=== PATIENT | female | born 1990 | race Caucasian/White ===

== ENCOUNTER 2016-12-29 22:46 | Emergency (ER) | payer OTHER ==
[2016-12-29] MEDS ORDERED: KETOROLAC 60 MG/2 ML VIAL IM STA (23:16)
[2016-12-29] MEDS ORDERED: HYDROmorphone 1 MG/ML SYRINGE IM STA (23:16)
[2016-12-29] MEDS ORDERED: KETOROLAC 60 MG/2 ML VIAL ONE (23:19)
[2016-12-29] MEDS ORDERED: HYDROmorphone 1 MG/ML SYRINGE ONE (23:19)
[2016-12-30] MEDS ORDERED: HYDROcod/ACET 5/325 Prepack 6 PO ONE ×2 (01:05→01:16)
== END 2016-12-30 01:27 | disposition home or self-care (01) ==
DX: R10.31 Right lower quadrant pain (principal); K21.9 Gastro-esophageal reflux disease without esophagitis; F17.200 Nicotine dependence, unspecified, uncomplicated
CPT/HCPCS: 36415; 74177; 76830; 76856; 80053; 81001; 81025; 83690; 85025; 87210; 87491; 87591; 93976; 96361; 96372; 96374; 96375; 96376; 99283; 99284; J1170; Q9967

== ENCOUNTER 2016-12-30 21:02 | Emergency (ER) | payer OTHER ==
[2016-12-30] MEDS ORDERED: ONDANSETRON 4 MG/2 ML VIAL IVP STA (21:26)
[2016-12-30] MEDS ORDERED: HYDROmorphone 1 MG/ML SYRINGE IVP STA ×2 (21:26→23:00)
[2016-12-30] MEDS ORDERED: SODIUM CHLORIDE 0.9% 1,000 ML IV ONE (21:28)
[2016-12-30] MEDS ORDERED: HYDROmorphone 1 MG/ML SYRINGE ONE ×2 (21:51→23:03)
[2016-12-30] MEDS ORDERED: ONDANSETRON 4 MG/2 ML VIAL ONE (21:51)
[2016-12-30] MEDS ORDERED: IOPAMIDOL-300 100 ML VIAL IVP ONE (22:05)
[2016-12-30] MEDS ORDERED: oxyCODONE/ACET 5/325 Prepack 4 PO STA (23:00)
[2016-12-30] MEDS ORDERED: KETOROLAC 60 MG/2 ML VIAL IVP STA (23:00)
[2016-12-30] MEDS ORDERED: KETOROLAC 30 MG/ML VIAL ONE (23:03)
[2016-12-30] MEDS ORDERED: oxyCODONE/ACET 5/325 Prepack 4 PO ONE (23:04)
[2016-12-30] MEDS ORDERED: ONDANSETRON ODT 4 MG Prepack 2 TL ONE (23:04)
[2016-12-30] MEDS: ONDANSETRON ODT 4 MG Prepack 2 TL PRN ×2 (23:15→23:16)
== END 2016-12-30 23:35 | disposition home or self-care (01) ==
DX: R10.9 Unspecified abdominal pain (principal); K21.9 Gastro-esophageal reflux disease without esophagitis; F17.200 Nicotine dependence, unspecified, uncomplicated

== ENCOUNTER 2017-02-16 20:39 | Emergency (ER) | payer OTHER ==
[2017-02-16] MEDS ORDERED: ONDANSETRON ODT 4 MG TABLET TL STA (21:37)
[2017-02-16] MEDS ORDERED: KETOROLAC 60 MG/2 ML VIAL IM STA (21:37)
[2017-02-16] MEDS ORDERED: ONDANSETRON ODT 4 MG TABLET ONE (21:43)
[2017-02-16] MEDS ORDERED: KETOROLAC 60 MG/2 ML VIAL ONE (21:43)
== END 2017-02-16 22:40 | disposition home or self-care (01) ==
DX: R10.32 Left lower quadrant pain (principal); R11.0 Nausea; K21.9 Gastro-esophageal reflux disease without esophagitis; F17.200 Nicotine dependence, unspecified, uncomplicated
CPT/HCPCS: 36415; 80053; 81003; 81025; 83690; 85025; 96372; 99283; Q0162

== ENCOUNTER 2017-05-16 09:36 | Emergency (ER) | payer OTHER, MEDICAID ==
[2017-05-16 10:05] LABS: BILIRUBIN,URINE NEGATIVE (NEGATIVE)
[2017-05-16 10:08] LABS: UA w/ MICROSCOPIC CHARGE YES
[2017-05-16 10:09] LABS: HCG UR QUAL NEGATIVE
[2017-05-16 10:23] LABS: WBC,URINE >25 /HPF (0-5)
[2017-05-16 10:24] LABS: UR CULTURE IF IND NOT INDICATED
--- NOTE | 2017-05-16 10:38 | ED Physician Documentation ---
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 She has not had fever vomiting or back pain. 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 - Past Surgical History Past Surgical History: Yes - Present Medications Home Medications: Ambulatory Orders Medication Instructions Recorded Confirmed Hydrocodone/Acetaminophen [[place] 1 each PO Q6H PRN #15 tablet 12/30/16 5-325 Tablet] Naproxen [Naprosyn] 500 mg PO BID PRN #15 tablet 12/30/16 Ondansetron HCl [Zofran] 4 mg PO Q6H PRN #20 tablet 12/30/16 Oxycodone HCl/Acetaminophen 1 each PO Q6H PRN #20 tablet 12/30/16 [Percocet 5-325 mg Tablet] Ondansetron Odt [Zofran] 4 mg TL Q6H PRN #10 tablet 02/16/17 Sulfamethoxazole/Trimethoprim 1 each PO BID #10 tablet 05/16/17 [Sulfamethoxazole-Tmp Ds Tablet] - Allergies Allergies/Adverse Reactions: Allergies Allergy/AdvReac Type Severity Reaction Status Date / Time venom-honey bee AdvReac Unknown Respiratory Verified 05/16/17 09:49 acetaminophen [From Vicodin] AdvReac Itching Verified 05/16/17 09:49 hydrocodone bitartrate * AdvReac Itching Verified 05/16/17 09:49 [From Vicodin] - Social History Does the pt smoke?: Yes Smoking Status: Current every day smoker Does the pt drink ETOH?: No Does the pt have substance abuse?: No - Immunizations Immunizations are current?: Yes - POLST Patient has POLST: No PD ED PE NORMAL - Vitals Vital signs reviewed: Yes (normal ) - General General: Alert and oriented X 3, No acute distress, Well developed/nourished - HEENT HEENT: Atraumatic, PERRL, EOMI - Respiratory Respiratory: No respiratory distress - Back Back: No CVA TTP, No spinal TTP - Derm Derm: Normal color, No rash - Extremities Extremities: No deformity, No edema - Neuro Neuro: No motor deficit, No sensory deficit - Psych Psych: Normal mood, Normal affect Results - Vitals Vitals: Vital Signs - 24 hr 05/16/17 09:38 Temperature 36.5 C Heart Rate 90 Respiratory 18 Rate Blood Pressure 124/69 O2 Saturation 98 Oxygen O2 Source Room air - Labs Labs: Laboratory Tests 05/16/17 05/16/17 09:44 09:44 Urine Color YELLOW Urine Clarity HAZY Urine pH 6.0 Ur Specific [place] 1.025 1.025 Urine Protein NEGATIVE Urine Glucose (UA) NEGATIVE Urine Ketones NEGATIVE Urine Occult Blood SMALL H Urine Nitrite NEGATIVE Urine Bilirubin NEGATIVE Urine Urobilinogen 0.2 (NORMAL) Ur Leukocyte Esterase TRACE H Urine RBC 6-10 H Urine WBC >25 H Ur Squamous Epith Cells MOD Squamous H Urine Bacteria Few Urine Yeast PRESENT Ur Microscopic Review INDICATED Urine Culture Comments NOT INDICATED Urine HCG, Qual NEGATIVE PD MEDICAL DECISION MAKING - ED course Complexity details: considered differential, d/w patient ED course: 26-year-old female with urinary symptoms greater than 25 white blood cells per high-powered field on her urine that does appear contaminated there will be no culture for this. Departure - Departure Disposition: 01 Home, Self Care Clinical Impression: Urinary tract infection Qualifiers: Urinary tract infection type: acute cystitis Hematuria presence: without hematuria Qualified Code(s): N30.00 - Acute cystitis without hematuria Condition: Stable Instructions: ED UTI Cystitis Female Follow-Up: [facility] [Provider Group] Prescriptions: Sulfamethoxazole/Trimethoprim [Sulfamethoxazole-Tmp Ds Tablet] 1 each PO BID # 10 tablet
[2017-05-16 10:43] VITALS: BP 122/74
== END 2017-05-16 10:42 | disposition home or self-care (01) ==
LOC: ED 09:36
DX: N30.00 Acute cystitis without hematuria (principal); J45.909 Unspecified asthma, uncomplicated; K21.9 Gastro-esophageal reflux disease without esophagitis; F17.200 Nicotine dependence, unspecified, uncomplicated
CPT/HCPCS: 81001; 81003; 81025; 87086; 99283

== ENCOUNTER 2017-05-18 20:19 | Emergency (ER) | payer MEDICAID ==
[2017-05-18] MEDS ORDERED: diphenhydrAMINE INJ 50 MG/ML VIAL IVP STA (21:06)
[2017-05-18] MEDS ORDERED: KETOROLAC 30 MG/ML VIAL IVP STA (21:06)
[2017-05-18] MEDS ORDERED: PROCHLORPERAZINE 10 MG/2 ML VIAL IVP STA (21:06)
[2017-05-18] MEDS ORDERED: SODIUM CHLORIDE 0.9% 1,000 ML IV ONE (21:06)
[2017-05-18] MEDS ORDERED: diphenhydrAMINE INJ 50 MG/ML VIAL ONE (22:11)
[2017-05-18] MEDS ORDERED: PROCHLORPERAZINE 10 MG/2 ML VIAL ONE (22:11)
[2017-05-18] MEDS ORDERED: KETOROLAC 30 MG/ML VIAL ONE (22:11)
--- NOTE | 2017-05-18 22:48 | ED Physician Documentation ---
PD HPI HEADACHE - Stated complaint Stated Complaint: HEADACHE - Chief complaint Chief Complaint: Neuro - History obtained from History obtained from: Patient - History of Present Illness Timing - onset: How many hours ago (12) Timing - details: Gradual onset, Still present Worst headache ever?: Worst headache ever? (no) Location: Global Associated symptoms: Vomiting (x2). No: Fever Worsened by: Light, Noise, Moving Contributing factors: No: Trauma Similar symptoms before: Diagnosis (History of migraine headaches, but rarely this bad.) Recently seen: Emergency Dept (She was seen in the emergency department here 2 days ago and diagnosed with urinary tract infection, for which she was prescribed trimethoprim sulfamethoxazole.) - Additional information Additional information: The patient is a 26-year-old female who presents with headache that started this morning and has persisted throughout the day. She is taken ibuprofen without relief. She reports vomiting 2. She denies fever, abdominal pain, or visual disturbance. She has a history of similar headaches in the past, but rarely this bad. 2 days ago she was diagnosed with urinary tract infection, and has been taking trimethoprim sulfamethoxazole. She currently denies dysuria. Review of Systems Constitutional: denies: Fever Eyes: denies: Decreased vision Ears: denies: Tinnitus/ringing Nose: denies: Congestion Throat: denies: Sore throat Cardiac: denies: Chest pain / pressure Respiratory: denies: Dyspnea, Cough GI: reports: Nausea, Vomiting (2). denies: Abdominal Pain : denies: Dysuria Skin: denies: Rash Musculoskeletal: denies: Neck pain, Back pain Neurologic: reports: Headache. 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 - Past Surgical History Past Surgical History: Yes - Present Medications Home Medications: Ambulatory Orders Medication Instructions Recorded Confirmed Sulfamethoxazole/Trimethoprim 1 each PO BID #10 tablet 05/16/17 05/18/17 [Sulfamethoxazole-Tmp Ds Tablet] - Allergies Allergies/Adverse Reactions: Allergies Allergy/AdvReac Type Severity Reaction Status Date / Time venom-honey bee AdvReac Unknown Respiratory Verified 05/16/17 09:49 acetaminophen [From Vicodin] AdvReac Itching Verified 05/16/17 09:49 hydrocodone bitartrate * AdvReac Itching Verified 05/16/17 09:49 [From Vicodin] - Social History Does the pt smoke?: Yes Smoking Status: Current every day smoker Does the pt drink ETOH?: No Does the pt have substance abuse?: No - Immunizations Immunizations are current?: Yes - POLST Patient has POLST: No PD ED PE NORMAL - Vitals Vital signs reviewed: Yes (normal) - General General: Alert and oriented X 3, Well developed/nourished - HEENT HEENT: Atraumatic, PERRL, EOMI, Ears normal, Pharynx benign, Other (Fundi with sharp disc margins, without papilledema.) - Neck Neck: Supple, no meningeal sign, No adenopathy - Cardiac Cardiac: RRR, No murmur - Respiratory Respiratory: No respiratory distress, Clear bilaterally - Abdomen Abdomen: Soft, Non tender - Back Back: No CVA TTP - Derm Derm: No rash - Extremities Extremities: No edema, No calf tenderness / cord - Neuro Neuro: Alert and oriented X 3, No motor deficit, No sensory deficit Results - Vitals Vitals: Vital Signs - 24 hr 05/18/17 23:02 Temperature 36.8 C Heart Rate 80 Respiratory 18 Rate Blood Pressure 102/68 O2 Saturation 99 Oxygen O2 Source Room air PD MEDICAL DECISION MAKING - ED course Complexity details: reviewed old records, re-evaluated patient, considered differential, d/w patient, d/w family ED course: The patient's presentation is significant for nonspecific headache. Her presentation does not suggest ICH, temporal arteritis, meningitis, or psuedotumor cerebri. Treatment in the Emergency Dept. included administration of NS 1 liter IV, Compazine 10 mg IV, Benadryl 25 mg IV, and Toradol 30 mg IV. Her symptoms completely resolved with the above treatment. I discussed with her and her symptomatic treatment, oupatient follow-up, as well as potentially worrisome signs or symtoms that should prompt reevaluation in the emergency department. Departure - Departure Disposition: 01 Home, Self Care Clinical Impression: Headache Instructions: ED Cephalgia Unspecified Comments: 1. Drink plenty of fluids. 2. You can use Tylenol or ibuprofen if needed for recurrent headache. 3. Follow up with primary physician within 2 weeks. Call to schedule an appointment. 4. Return to the emergency department if you develop increasing headache, persistent vomiting, or otherwise worsening symptoms. Discharge Date/Time: 05/18/17 23:02
[2017-05-18 23:03] VITALS: BP 102/68
== END 2017-05-18 23:02 | disposition home or self-care (01) ==
LOC: ED 20:19
DX: R51 Headache (principal); J45.909 Unspecified asthma, uncomplicated; K21.9 Gastro-esophageal reflux disease without esophagitis; F17.200 Nicotine dependence, unspecified, uncomplicated
CPT/HCPCS: 96374; 96375; 99283; 99284

== ENCOUNTER 2017-09-18 08:00 | Outpatient (CLI) | payer OTHER, MEDICAID ==
[2017-09-18 18:47] LABS: BASOPHILS % (AUTO) 0.5 %; EOSINOPHILS # (AUTO) 0.3 10^3/uL (0.0-0.7); HCT - HEMATOCRIT 39.6 % (37.0-47.0); HGB - HEMOGLOBIN 13.4 g/dL (12.0-16.0); LYMPHOCYTES # (AUTO) 2.3 10^3/uL (1.5-3.5); LYMPHOCYTES % (AUTO) 24.1 %; MEAN CORPUSCULAR HEMOGLOBIN 29.4 pg (27.0-31.0); MEAN CORPUSCULAR HGB CONC 33.9 g/dL (32.0-36.0); MEAN CORPUSCULAR VOLUME 86.9 fL (81.0-99.0); MEAN PLATELET VOLUME 8.9 fL (7.9-10.8); MONOCYTES # (AUTO) 0.8 10^3/uL (0.0-1.0); MONOCYTES % (AUTO) 8.1 %; NEUTROPHILS # (AUTO) 6.1 10^3/uL (1.5-6.6); NEUTROPHILS % (AUTO) 64.3 %; RED BLOOD COUNT 4.55 10^6/uL (4.20-5.40); RED CELL DISTRIBUTION WIDTH 13.1 % (12.0-15.0); UNCORRECTED WHITE BLOOD COUNT 9.5 x10^3/uL; WHITE BLOOD COUNT 9.5 x10^3/uL (4.8-10.8)
[2017-09-18 19:02] LABS: ALBUMIN/GLOBULIN RATIO 1.2 (1.0-2.2); BILIRUBIN,TOTAL 0.3 mg/dL (0.2-1.0); BUN - BLOOD UREA NITROGEN 9 mg/dL (6-20); CALCIUM 9.1 mg/dL (8.5-10.3); CARBON DIOXIDE - CO2 22 mmol/L (21-32); CHLORIDE 104 mmol/L (101-111); CHOL/HDL RATIO 4.6 (<4.4); CHOLESTEROL 146 mg/dL; CREATININE 0.6 mg/dL (0.4-1.0); GFR - MDRD 122 (>89); GLUCOSE 86 mg/dL (70-100); HDL CHOLESTEROL 32 mg/dL; POTASSIUM 3.9 mmol/L (3.5-5.0); SODIUM 136 mmol/L (135-145); TOTAL PROTEIN 7.1 g/dL (6.7-8.2); TRIGLYCERIDES 252 mg/dL; VLDL CHOLESTEROL 50 mg/dL
== END 2017-09-18 08:01 | disposition home or self-care (01) ==
LOC: LAB.N 08:00
PROVIDERS: ATTEND Nurse Practitioner Gerontology
DX: Z13.9 Encounter for screening, unspecified (principal); N91.2 Amenorrhea, unspecified
CPT/HCPCS: 36415; 80050; 80061; 84702

== ENCOUNTER 2017-09-22 09:44 | Outpatient (CLI) | payer MEDICAID, OTHER | END 2017-09-22 09:45 | disposition home or self-care (01) | LOC: LAB.N 09:44 | PROVIDERS: ATTEND Nurse Practitioner Gerontology | DX: N91.2 Amenorrhea, unspecified (principal) | CPT/HCPCS: 36415; 84703 ==

== ENCOUNTER 2018-02-24 08:00 | Outpatient (CLI) | payer MEDICAID | END 2018-02-24 08:01 | LOC: LAB.R 08:00 | PROVIDERS: ATTEND Obstetrics & Gynecology | DX: E04.9 Nontoxic goiter, unspecified (principal); Z11.3 Encounter for screening for infections with a predominantly sexual mode of transmission | CPT/HCPCS: 87491; 87591 ==

== ENCOUNTER 2018-02-25 08:00 | Outpatient (CLI) | payer MEDICAID ==
[2018-02-25 13:15] LABS: THYROID STIMULATING HORMONE 4.93 uIU/mL (0.34-5.60)
[2018-02-25 13:17] LABS: FREE T4 (FREE THYROXINE) 0.63 ng/dL (0.58-1.64)
[2018-02-25 13:42] LABS: FOLLICLE STIMULATING HORMONE 3.53 mIU/mL
== END 2018-02-25 08:01 | disposition home or self-care (01) ==
LOC: LAB.N 08:00
PROVIDERS: ATTEND Obstetrics & Gynecology
DX: E04.9 Nontoxic goiter, unspecified (principal); Z11.3 Encounter for screening for infections with a predominantly sexual mode of transmission
CPT/HCPCS: 36415; 83001; 84439; 84443; 84481

== ENCOUNTER 2018-03-02 18:56 | Emergency (ER) | payer MEDICAID ==
[2018-03-02 19:42] LABS: BILIRUBIN,URINE NEGATIVE (NEGATIVE); GLUCOSE, URINE (UA) NEGATIVE (NEGATIVE); KETONES,URINE (UA) NEGATIVE (NEGATIVE); LEUKOCYTE ESTERASE, URINE NEGATIVE (NEGATIVE); NITRITE,URINE NEGATIVE (NEGATIVE); OCCULT BLOOD,URINE NEGATIVE (NEGATIVE); PROTEIN,URINE NEGATIVE (NEGATIVE); UROBILINOGEN,URINE 0.2 (NORMAL) E.U./dL (NORMAL)
[2018-03-02 19:46] LABS: CLARITY,URINE CLEAR (CLEAR); HCG UR QUAL NEGATIVE
[2018-03-02] MEDS ORDERED: CYCLOBENZAPRINE 10 MG TABLET PO STA (20:32)
[2018-03-02] MEDS ORDERED: KETOROLAC 60 MG/2 ML VIAL IM STA (20:33)
[2018-03-02] MEDS ORDERED: oxyCODONE 5 MG TABLET PO STA (20:35)
--- NOTE | 2018-03-02 20:49 | ED Physician Documentation ---
PD HPI BACK PAIN - Stated complaint Stated Complaint: LOW BACK/ABD PX - Chief complaint Chief Complaint: Back Pain - History obtained from History obtained from: Patient - History of Present Illness Timing - onset: How many days ago (2) Timing - duration: Days (2) Timing - details: Gradual onset Pain level max: 8 Pain level now: 8 Location: Lower, Right, Left Quality: Pain, Spasm, Similar to prior episodes Associated symptoms: No: Fever, Weakness, Numbness, Incontinent of urine, Unable to urinate, Hematuria, Incontinent of stool Improves with: Rest Worsened by: Movement Contributing factors: No: Lifting, Twisting, Trauma, Anticoagulated, Cancer, IVDA, Out of meds Similar symptoms before: Diagnosis (low back pain, endometriosis) Review of Systems Constitutional: denies: Fever, Chills Nose: denies: Rhinorrhea / runny nose, Congestion Throat: denies: Sore throat Cardiac: denies: Chest pain / pressure Respiratory: denies: Dyspnea GI: denies: Nausea, Vomiting, Diarrhea, Hematemesis, Bloody / black stool : reports: LMP (4 weeks ago). 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 - Past Surgical History Past Surgical History: Yes - Present Medications Home Medications: Ambulatory Orders Medication Instructions Recorded Confirmed Sulfamethoxazole/Trimethoprim 1 each PO BID #10 tablet 05/16/17 05/18/17 [Sulfamethoxazole-Tmp Ds Tablet] Citalopram [CeleXA] 20 mg 03/02/18 Cyclobenzaprine [Flexeril] 10 mg PO TID PRN #20 tablet 03/02/18 Meloxicam [Mobic] 15 mg PO DAILY PRN #20 tablet 03/02/18 Oxycodone HCl/Acetaminophen 1 - 2 each PO Q6H PRN #10 tablet 03/02/18 [Percocet 5-325 mg Tablet] - Allergies Allergies/Adverse Reactions: Allergies Allergy/AdvReac Type Severity Reaction Status Date / Time venom-honey bee AdvReac Unknown Respiratory Verified 05/16/17 09:49 acetaminophen [From Vicodin] AdvReac Itching Verified 05/16/17 09:49 hydrocodone bitartrate * AdvReac Itching Verified 05/16/17 09:49 [From Vicodin] - Social History Does the pt smoke?: Yes Smoking Status: Current every day smoker Does the pt drink ETOH?: No Does the pt have substance abuse?: No - Immunizations Immunizations are current?: Yes - POLST Patient has POLST: No PD ED PE NORMAL - Vitals Vital signs reviewed: Yes - General General: Alert and oriented X 3, No acute distress - HEENT HEENT: Moist mucous membranes - Neck Neck: Supple, no meningeal sign - Cardiac Cardiac: RRR - Respiratory Respiratory: No respiratory distress, Clear bilaterally - Abdomen Abdomen: Soft, Non tender, Non distended - Back Back: No CVA TTP, No spinal TTP, Other (Mild paraspinal spasm, bilateral lower lumbar.) - Derm Derm: Warm and dry - Extremities Extremities: Other (normal bilateral lower extremity patellar and ankle jerk reflexes. Normal great toe extension bilaterally) - Neuro Neuro: Alert and oriented X 3 - Psych Psych: Normal mood, Normal affect Results - Vitals Vitals: Oxygen O2 Source Room air - Labs Labs: Laboratory Tests 03/02/18 19:30 Urine Color YELLOW Urine Clarity CLEAR Urine pH 6.0 Ur Specific [place] 1.015 Urine Protein NEGATIVE Urine Glucose (UA) NEGATIVE Urine Ketones NEGATIVE Urine Occult Blood NEGATIVE Urine Nitrite NEGATIVE Urine Bilirubin NEGATIVE Urine Urobilinogen 0.2 (NORMAL) Ur Leukocyte Esterase NEGATIVE Ur Microscopic Review NOT INDICATED Urine Culture Comments NOT INDICATED Urine HCG, Qual NEGATIVE PD MEDICAL DECISION MAKING - ED course Complexity details: reviewed old records, considered differential (no cauda equina, no spinal epidural abscess, no fracture, no aortic dissection or evidence of aneursym rupture), d/w patient ED course: Patient is a 27-year-old female who presents to the emergency department with low back pain. Possible endometriosis? Possible musculoskeletal back pain. Will place on pain medication follow-up with her doctor. Patient counseled regarding signs and symptoms for which I believe and urgent re-evaluation would be necessary. Patient with good understanding of and agreement to plan and is comfortable going home at this time This document was made in part using voice recognition software. While efforts are made to proofread this document, sound alike and grammatical errors may occur. Departure - Departure Disposition: 01 Home, Self Care Clinical Impression: Back pain Qualifiers: Back pain location: low back pain Chronicity: acute Back pain laterality: bilateral Sciatica presence: without sciatica Qualified Code(s): M54.5 - Low back pain Condition: Good Instructions: ED Spasm Back No Trauma Follow-Up: Gordon Page PA-C [Primary Care Provider] - Prescriptions: Cyclobenzaprine [Flexeril] 10 mg PO TID PRN #20 tablet PRN Reason: Spasms Meloxicam [Mobic] 15 mg PO DAILY PRN #20 tablet PRN Reason: pain Oxycodone HCl/Acetaminophen [Percocet 5-325 mg Tablet] 1 - 2 each PO Q6H PRN # 10 tablet PRN Reason: pain Comments: Return if you worsen. Use the medications for the next 24 hours and see how you progress. This should improve over the next 24 hours[address] not drink alcohol or drive while on narcotic pain medicine. Note that many narcotic pain relievers also contain tylenol/acetaminophen. Please ensure that your total dose of acetaminophen from all sources does not exceed 3 grams (3000mg) per day. You may constipated on this medication, take a stool softener such as "Colace" twice a day while you are on it. Also recommend a [id number] laxative such as senna or MiraLAX any day that you do not have a bowel movement. If you received narcotic pain medication in the emergency department, do not drive or operate machinery for the next 24 hours. Discharge Date/Time: 03/02/18 20:56
[2018-03-02 20:55] VITALS: BP 111/65
== END 2018-03-02 20:56 | disposition home or self-care (01) ==
LOC: ED 18:56
DX: M54.5 Low back pain (principal); F17.200 Nicotine dependence, unspecified, uncomplicated
CPT/HCPCS: 81003; 81025; 96372; 99283; A9270; 81001; 87086

== ENCOUNTER 2018-03-23 15:51 | Outpatient (CLI) | payer MEDICAID ==
[2018-03-23 16:32] LABS: BASOPHILS # (AUTO) 0.1 10^3/uL (0.0-0.1); BASOPHILS % (AUTO) 0.8 %; EOSINOPHILS # (AUTO) 0.5 10^3/uL (0.0-0.7); EOSINOPHILS % (AUTO) 6.1 %; HGB - HEMOGLOBIN 13.1 g/dL (12.0-16.0); LYMPHOCYTES # (AUTO) 2.7 10^3/uL (1.5-3.5); LYMPHOCYTES % (AUTO) 30.1 %; MEAN CORPUSCULAR HEMOGLOBIN 29.2 pg (27.0-31.0); MEAN CORPUSCULAR HGB CONC 33.2 g/dL (32.0-36.0); MEAN CORPUSCULAR VOLUME 87.8 fL (81.0-99.0); MEAN PLATELET VOLUME 8.5 fL (7.9-10.8); MONOCYTES # (AUTO) 0.6 10^3/uL (0.0-1.0); MONOCYTES % (AUTO) 6.9 %; NEUTROPHILS % (AUTO) 56.1 %; PLT - PLATELET COUNT 321 10^3/uL (130-450)
[2018-03-23 17:01] LABS: BILIRUBIN,URINE NEGATIVE (NEGATIVE); GLUCOSE, URINE (UA) NEGATIVE (NEGATIVE); KETONES,URINE (UA) NEGATIVE (NEGATIVE); LEUKOCYTE ESTERASE, URINE NEGATIVE (NEGATIVE); NITRITE,URINE NEGATIVE (NEGATIVE); OCCULT BLOOD,URINE NEGATIVE (NEGATIVE); PROTEIN,URINE NEGATIVE (NEGATIVE); UROBILINOGEN,URINE 0.2 (NORMAL) E.U./dL (NORMAL)
[2018-03-23 17:03] LABS: CLARITY,URINE CLEAR (CLEAR); HCG UR QUAL NEGATIVE
== END 2018-03-23 15:52 | disposition home or self-care (01) ==
LOC: LAB 15:51
PROVIDERS: ATTEND Obstetrics & Gynecology
DX: Z01.812 Encounter for preprocedural laboratory examination (principal); R10.2 Pelvic and perineal pain; R10.32 Left lower quadrant pain; R10.31 Right lower quadrant pain
CPT/HCPCS: 36415; 81003; 81025; 85025

== ENCOUNTER 2018-03-25 08:07 | Day surgery (SDC) | payer MEDICAID ==
--- NOTE | 2018-03-23 18:10 | PREOP HISTORY & PHYSICAL ---
DATE OF SERVICE: 03/23/2018 Physician: Redd Grewal MD DIAGNOSIS: Bilateral lower quadrant pain; pelvic pain; bladder pain; menorrhagia. INTENDED PROCEDURE: Diagnostic laparoscopy; cystoscopy; dilatation and curettage; possible destruction of endometriosis; chromopertubation possible. HISTORY OF PRESENT ILLNESS: Aleyda Castillo is a 27-year-old 2, para 2 woman who reports 24 months of bilateral lower quadrant pain and mid pelvic pain including dysmenorrhea as well as heavy menstrual periods. She reports bilateral and midline pain that is grade 7-8/10 and a senses a stabbing or twisting sensation. She has used NSAIDs, a massage, and has smoked marijuana to try to relieve the pain. She reports q. 30-day menses with 4-5 days of heavy flow. Her flow is so heavy that it saturates Maxi pads and occasionally bleeds onto her clothing. She reports plum size clots during menes. She reports midline bladder pain, but no true dysuria. She has no history of STDs, gastrointestinal disease, or cystitis. She does have a history of back spasm and has seen Dr. Page in the past and had both physical therapy and a CT scan. She was seen in the emergency room on 03/02/2018 and after evaluation, possibility of endometriosis was raised. Reference Dr. Steiner's note. PAST MEDICAL HISTORY: The patient has chronic knee problems, but was not a candidate for surgery. Back spasm is noted above. PAST SURGICAL HISTORY: None. ALLERGIES: BEE STING. MEDICATIONS: 1. Citalopram 20 mg daily. 2. Xanax 0.25 mg p.r.n. 3. Flexeril. FAMILY HISTORY: Crohn's disease, coronary artery disease, aortic aneurysm, and hypertension. 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 REVIEW OF SYSTEMS: CONSTITUTIONAL: Denies fevers, chills. HEENT: No rhinorrhea, congestion or sore throat. CARDIOVASCULAR: Denies chest pain, pressure. RESPIRATORY: No dyspnea. No asthma. GASTROINTESTINAL: Denies nausea, vomiting, diarrhea, hematemesis and dark stool. GENITOURINARY: Menorrhagia; no discharge, no STD history. DERMATOLOGIC: Negative for rash. MUSCULOSKELETAL: Negative. NEUROLOGIC: Negative. PHYSICAL EXAMINATION: GENERAL: Well groomed, pleasant, sitting comfortably in chair. HEENT: Moist mucous membranes. Dentition in repair. No thyromegaly. NECK: Supple. HEART: Regular rhythm. No murmur, no gallop. LUNGS: No wheezes: Clear bilaterally. ABDOMEN: Soft, mild tenderness reported to deep palpation. No rebound. No CVA tenderness. EXTREMITIES: External genitalia, no lesions. VAGINA: No blood or discharge. CERVIX: Sensitivity to motion. Cultures negative. UTERUS: Prominent not enlarged. Mild tenderness. OVARIES: Normal size, mobile. DERMATOLOGIC: No evident rash. SKIN: Warm, dry. Extremities: Moves all extremities well with normal range of motion with no joint tenderness or swelling. NEUROLOGIC: Alert, oriented. Patellar reflexes normal. Normal gait. PSYCHIATRIC: Normal mood and affect. ASSESSMENT: The patient has had weeks of chronic pelvic pain that have failed the usual NSAIDs. Pain adversely affects her normal daily function and intimate life. At this point, definitive diagnosis via laparoscopy is indicated, as well as cystoscopy for the midline and possible bladder complaints. Endometriosis may be a factor and could be treated as well at the time of laparoscopy. We had a detailed discussion of pelvic pain and lower abdominal pain as possible causes, natural history and role of laparoscopy in workup. She is aware that laparoscopy and cystoscopy as well as D and C or surgical procedures carry risks such as bleeding, transfusion, infection, damage to intestines, damage to urinary tract as well as creating pain de radha. She is also aware that laparoscopy often does not reveal the cause of pain and that a different workup would be required to investigate the nature of her pain further. Hospital informed consent was done. PLAN: [facility] and cystoscopy. Baseline labs are pending. TD: 03/23/2018 16:18 STONE
[~2018-03-25 08:07] MED LIST: BUPIVACAINE 0.25%-EPI 1:200000 PF 30 ML VIAL ONE; LACTATED RINGERS 1,000 ML IV ONE
[2018-03-25 08:31] LABS: HCG UR QUAL NEGATIVE
[2018-03-25] MEDS ORDERED: BUPIVACAINE 0.25%-EPI 1:200000 PF 30 ML VIAL SUBQ ONE ×2 (10:02)
[2018-03-25] MEDS ORDERED: MIDAZOLAM 2 MG/2 ML VIAL IVP ONE (10:12)
[2018-03-25] MEDS ORDERED: DEXAMETHASONE 4 MG/ML VIAL IVP ONE (10:12)
[2018-03-25] MEDS ORDERED: ACETAMINOPHEN 1,000 MG/100 ML 100 ML IV ONE (10:12)
[2018-03-25] MEDS ORDERED: ONDANSETRON 4 MG/2 ML VIAL IVP ONE (10:12)
[2018-03-25] MEDS ORDERED: GLYCOPYRROLATE 1 MG/5 ML VIAL IVP ONE (10:12)
[2018-03-25] MEDS ORDERED: PROPOFOL 200 MG/20 ML VIAL IVP ONE (10:12)
[2018-03-25] MEDS ORDERED: KETOROLAC 30 MG/ML VIAL IVP ONE (10:12)
[2018-03-25] MEDS ORDERED: LIDOCAINE-MPF 2% 5 ML VIAL IM ONE (10:12)
[2018-03-25] MEDS ORDERED: ROCURONIUM 50 MG/5 ML VIAL IVP ONE (10:12)
[2018-03-25] MEDS ORDERED: fentaNYL 250 MCG/5 ML VIAL IVP ONE (10:12)
[2018-03-25] MEDS ORDERED: NEOSTIGMINE 1 MG/1 ML 10 ML MDV IVP ONE (10:12)
[2018-03-25] MEDS ORDERED: LACTATED RINGERS 1,000 ML IV ONE (10:21)
[2018-03-25] MEDS ORDERED: METHYLENE BLUE 0.5% 50 MG/10 ML AMPULE IR ONE (10:22)
[2018-03-25] MEDS ORDERED: METHYLENE BLUE 0.5% 50 MG/10 ML AMPULE ONE (10:28)
--- NOTE | 2018-03-25 10:42 | OPERATIVE REPORT ---
Operative Report - General Pre-Op Diagnosis: Bilateral lower quadrant abdominal pain and pelvic pain; menorrhagia Procedure Performed: Diagnostic laparoscopy; cystoscopy; dilatation and curettage; chromopertubation Post Op Diagnosis: No evidence of endometriosis, pelvic inflammatory disease, or interstitial - Procedure Note Primary Surgeon: Redd Grewal MD, FACOG, FICS Secondary Surgeon: Redd Perez MD, FACOG Anesthesia Provider: Molina Bonilla, certified nurse analytical technician Anesthesia Technique: General ET tube Pathology: None IV Fluids (mL): 900 Estimated Blood Loss (mL): 10 Urine Output (mL): 225 Drain/Tube Type: Other (Joe catheter, clear) Complications: None
[2018-03-25] MEDS: HYDROmorphone 1 MG/ML CARPUJECT ONE ×2 (10:50→11:03)
--- NOTE | 2018-03-25 11:39 | OPERATIVE REPORT ---
DATE OF SERVICE: 03/25/2018 Physician: Redd Grewal MD PREOPERATIVE DIAGNOSES: Bilateral lower quadrant abdominal pain and pelvic pain ; menorrhagia. 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 PROCEDURE PERFORMED: SURGEON: Redd Grewal MD, FACOG, FICS CONE CLEANER: Redd Perez MD, FACOG ANESTHESIA PROVIDER: Molina Bonilla, certified nurse counter hand. ANESTHESIA TECHNIQUE: General, ET tube placed. PATHOLOGY: Endocervical and endometrial tissue sent. INTRAVENOUS FLUIDS: 900. ESTIMATED BLOOD LOSS: 10 mL URINE OUTPUT: 225, clear. DRAINS: Joe to catheter. COMPLICATIONS: None. FINDINGS: Exam under anesthesia finds the external genitalia shaven without any evident skin lesions. The vagina has no lesions and a mild grade 1 cystocele. Cervix is barrel length with a diameter of about 4 cm. There is a definite ectropion, but no cervicitis. Uterus palpates normal size and is retroverted. Laparoscopy finds a normal size uterus without evidence of leiomyoma. Both tubes are fluffy and open. On chromopertubation, there was a free flow of blue dye. Careful examination of the pelvis finds no evidence of endometriosis in the anterior compartment, the cul- de-sac, the right and left ovarian fossa. The ovaries appear to be normal and cystically active. Appendix is mobile without evidence of inflammation. Liver edges are normal and there is no fatty liver changes or Lmya-Abqs-Yfpsgr syndrome. Systematic examination of the bladder finds no dysplastic lesions or evidence of interstitial cystitis. There is an area of cystitis cystica in the trigone. Urine is freely flowing from both the right and left ureter. TECHNIQUE: The patient was placed on the operating room table in the supine position. She was uneventfully induced and intubated. She was moved to the low dorsal lithotomy position on [facility]. She was prepped and draped in the customary sterile fashion. Time-out briefing was done per protocol. Joe catheter was placed. Clamshell speculum was opened and the cervix easily visualized. Anterior cervical lip was grasped with single-tooth tenaculum. A Hegar probe was inserted easily to determine the axis of the endocervical canal. The endocervical canal then was gently dilated to Hegar size 6 with serial application of the Hegar dilators. The endocervix was then curettaged in all 4 quadrants and a small amount of tissue obtained. Next, medium size curette was used to curettage the uterine cavity. At this point, curettage was finished. HUMI uterine manipulator was easily inserted and inflated. There was bleeding of the single- tooth tenaculum punctures. These were stenched with two interrupted sutures of 2-0 chromic. We then moved to the abdominal phase. Small incision was placed under the umbilical skin fold. Visiport 5 mm trocar was uneventfully inserted into the abdomen under direct visualization. The abdomen was insufflated with CO2 gas at 12 mm of pressure. Left and right lower quadrant operating ports were then placed under direct visualization uneventfully. The abdominal cavity was assessed, reference findings section and photos. Careful inspection of the pelvis was done and explanation for her pain could not be readily found. 20 mL of methylene blue stained sterile saline was then injected through the HUMI port. The fluid flowed freely through the tubes and exited unimpeded. At this point , laparoscopy was concluded. Abdomen was desufflated of CO2 gas. All trocars were removed. Skin wounds were closed with interrupted subcuticular stitches of 4-0 Monocryl and dressed with Dermabond. Additional 0.25% Marcaine with epinephrine was injected into the skin wounds for comfort. At this point, we turned to cystoscopy. The uterine manipulator was removed. Joe was removed. The 70-degree video cystoscope was introduced through the urethra. The bladder cavity was inspected in a systematic manner starting at the bladder dome and down to the urethra in a clockwise fashion. The ureteral orifices were inspected and found to be functional. At this point, cystoscopy was terminated. A Joe catheter was replaced. Patient was uneventfully awakened from general anesthesia and sent to the recovery room in good condition. I reviewed findings of her procedure and photos. She was given complete warning sign and call-back instructions. She will see us for followup in 2 weeks. DISCHARGE MEDICATIONS 1. Motrin 600 q.6-8 hours pain. 2. Vicadin 1-2 tabs q.4 hours breakthrough pain. 3. Colace 200 mg b.i.d. TD: 03/25/2018 11:15 [facility]
[2018-03-25 12:41] VITALS: BP 120/65
== END 2018-03-25 08:08 | disposition home or self-care (01) ==
LOC: SDS 08:07
PROVIDERS: ATTEND Obstetrics & Gynecology
PROC: 0UDB7ZX Extraction of Endometrium, Via Natural or Artificial Opening, Diagnostic (ICD-10-PCS; 2018-03-25)
PROC: 3E1P78X Irrigation of Female Reproductive using Irrigating Substance, Via Natural or Artificial Opening, Diagnostic (ICD-10-PCS; 2018-03-25)
PROC: 0WJG4ZZ Inspection of Peritoneal Cavity, Percutaneous Endoscopic Approach (ICD-10-PCS; principal; 2018-03-25 09:15)
PROC: 0TJB8ZZ Inspection of Bladder, Via Natural or Artificial Opening Endoscopic (ICD-10-PCS; 2018-03-25 09:15)
DX: R10.31 Right lower quadrant pain (principal); R10.32 Left lower quadrant pain; N92.0 Excessive and frequent menstruation with regular cycle; R10.2 Pelvic and perineal pain; N84.1 Polyp of cervix uteri; F17.210 Nicotine dependence, cigarettes, uncomplicated
CPT/HCPCS: 49320; 52000; 58120; 58350; 81025; J1170; J7120

== ENCOUNTER 2018-06-04 01:40 | Emergency (ER) | payer MEDICAID ==
--- NOTE | 2018-06-04 01:55 | ED Physician Documentation ---
PD HPI ABD PAIN - Stated complaint Stated Complaint: ABD PAIN - Chief complaint Chief Complaint: Abd Pain - History obtained from History obtained from: Patient - History of Present Illness Timing - onset: Today Timing - duration: Hours Timing - details: Gradual onset, Intermittant, Waxing and waning Pain level now: 3 Quality: Cramping, Pain Location: RUQ, Epigastric Radiation: No: Chest, , Lower back, Left flank, Left shoulder, Right flank, Right shoulder, Upper back Improved by: No: Eating, Laying still, Vomiting, BM, Position, Meds Worsened by: No: Eating, Moving, Breathing, Position, Palpation Associated symptoms: Nausea, Vomiting. No: Fever, Diarrhea, Constipation, Dysuria, Chest pain Similar symptoms before: Has not had sx before - Additional information Additional information: has been trying to get , took three Tests today, all from different brands, and all resulted positive. Review of Systems Constitutional: reports: Reviewed and negative Cardiac: reports: Reviewed and negative Respiratory: reports: Reviewed and negative GI: reports: Abdominal Pain, Nausea, Vomiting. 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 Psych: Anxiety - Past Surgical History Past Surgical History: Yes - Present Medications Home Medications: Ambulatory Orders Medication Instructions Recorded Confirmed Famotidine [Pepcid] 20 mg PO ONCE #30 tablet 06/05/18 Ondansetron Odt [Zofran] 4 mg TL Q6H PRN #30 tablet 06/05/18 Pyridoxine HCl [Vitamin B-6] 25 mg PO BID #60 tablet 06/05/18 - Allergies Allergies/Adverse Reactions: Allergies Allergy/AdvReac Type Severity Reaction Status Date / Time venom-honey bee AdvReac Unknown Respiratory Verified 06/05/18 15:55 acetaminophen [From Vicodin] AdvReac Itching Verified 06/05/18 15:55 hydrocodone bitartrate * AdvReac Itching Verified 06/05/18 15:55 [From Vicodin] - Social History Does the pt smoke?: Yes Smoking Status: Current every day smoker Does the pt drink ETOH?: No Does the pt have substance abuse?: No - Immunizations Immunizations are current?: Yes - POLST Patient has POLST: No PD ED PE NORMAL - Vitals Vital signs reviewed: Yes - General General: Alert and oriented X 3, No acute distress, Well developed/nourished - Neck Neck: Supple, no meningeal sign - Cardiac Cardiac: RRR, No murmur, No gallop, No rub - Respiratory Respiratory: No respiratory distress, Clear bilaterally - Abdomen Abdomen: Normal bowel sounds, Soft, Non tender, Non distended - Back Back: No CVA TTP Results - Vitals Vitals: Oxygen O2 Source Room air - Labs Labs: Laboratory Tests 06/04/18 06/04/18 06/04/18 01:52 02:22 02:22 WBC 12.7 H RBC 4.59 Hgb 13.7 Hct 39.2 MCV 85.4 MCH 29.8 MCHC 34.9 RDW 12.7 Plt Count 307 MPV 7.8 L Neut # (Auto) 8.9 H Lymph # (Auto) 2.6 [place] # (Auto) 0.8 Eos # (Auto) 0.3 Baso # (Auto) 0.1 Absolute Nucleated RBC 0.00 Nucleated RBC % 0.0 Sodium 133 L Potassium 3.3 L Chloride 101 Carbon Dioxide 24 Anion Gap 8.0 BUN 13 Creatinine 0.7 Estimated GFR (MDRD) 101 Glucose 101 H Calcium 8.9 Total Bilirubin 0.4 AST 22 ALT 20 Alkaline Phosphatase 79 Total Protein 7.7 Albumin 4.2 Globulin 3.5 Albumin/Globulin Ratio 1.2 Lipase 25 HCG, Quant Urine Color YELLOW Urine Clarity CLEAR Urine pH 6.0 Ur Specific [place] <=1.005 Urine Protein NEGATIVE Urine Glucose (UA) NEGATIVE Urine Ketones NEGATIVE Urine Occult Blood NEGATIVE Urine Nitrite NEGATIVE Urine Bilirubin NEGATIVE Urine Urobilinogen 0.2 (NORMAL) Ur Leukocyte Esterase NEGATIVE Ur Microscopic Review NOT INDICATED Urine Culture Comments NOT INDICATED Urine HCG, Qual NEGATIVE 06/04/18 02:22 WBC RBC Hgb Hct MCV MCH MCHC RDW Plt Count MPV Neut # (Auto) Lymph # (Auto) [place] # (Auto) Eos # (Auto) Baso # (Auto) Absolute Nucleated RBC Nucleated RBC % Sodium Potassium Chloride Carbon Dioxide Anion Gap BUN Creatinine Estimated GFR (MDRD) Glucose Calcium Total Bilirubin AST ALT Alkaline Phosphatase Total Protein Albumin Globulin Albumin/Globulin Ratio Lipase HCG, Quant 36.76 Urine Color Urine Clarity Urine pH Ur Specific [place] Urine Protein Urine Glucose (UA) Urine Ketones Urine Occult Blood Urine Nitrite Urine Bilirubin Urine Urobilinogen Ur Leukocyte Esterase Ur Microscopic Review Urine Culture Comments Urine HCG, Qual PD MEDICAL DECISION MAKING - ED course Complexity details: reviewed results, re-evaluated patient, considered differential, d/w patient - Sepsis Event Vital Signs: Oxygen O2 Source Room air Departure - Departure Disposition: 01 Home, Self Care Clinical Impression: Abdominal pain Qualifiers: Abdominal location: upper abdomen, unspecified Qualified Code(s): R10.10 - Upper abdominal pain, unspecified Condition: Good Instructions: ED Abdominal Pain Unkn Cause Follow-Up: Gordon Page PA-C [Primary Care Provider] - Comments: Your urine test was negative tonight, but the serum (blood) test was very minimally into a positive range. Follow up with your primary care doctor or edi programmer analyst for a recheck of this test in the next few days or week. Please return to the emergency department if your symptoms worsen in any way. Discharge Date/Time: 06/04/18 04:20
[2018-06-04 02:01] LABS: BILIRUBIN,URINE NEGATIVE (NEGATIVE); GLUCOSE, URINE (UA) NEGATIVE (NEGATIVE); KETONES,URINE (UA) NEGATIVE (NEGATIVE); LEUKOCYTE ESTERASE, URINE NEGATIVE (NEGATIVE); NITRITE,URINE NEGATIVE (NEGATIVE); OCCULT BLOOD,URINE NEGATIVE (NEGATIVE); PROTEIN,URINE NEGATIVE (NEGATIVE); UROBILINOGEN,URINE 0.2 (NORMAL) E.U./dL (NORMAL)
[2018-06-04 02:03] LABS: CLARITY,URINE CLEAR (CLEAR); HCG UR QUAL NEGATIVE
[2018-06-04] MEDS ORDERED: ONDANSETRON ODT 4 MG TABLET TL STA (02:14)
[2018-06-04 02:28] LABS: BASOPHILS # (AUTO) 0.1 10^3/uL (0.0-0.1); BASOPHILS % (AUTO) 0.7 %; EOSINOPHILS # (AUTO) 0.3 10^3/uL (0.0-0.7); EOSINOPHILS % (AUTO) 2.1 %; HGB - HEMOGLOBIN 13.7 g/dL (12.0-16.0); LYMPHOCYTES # (AUTO) 2.6 10^3/uL (1.5-3.5); LYMPHOCYTES % (AUTO) 20.4 %; MEAN CORPUSCULAR HEMOGLOBIN 29.8 pg (27.0-31.0); MEAN CORPUSCULAR HGB CONC 34.9 g/dL (32.0-36.0); MEAN CORPUSCULAR VOLUME 85.4 fL (81.0-99.0); MEAN PLATELET VOLUME 7.8 fL (7.9-10.8); MONOCYTES # (AUTO) 0.8 10^3/uL (0.0-1.0); MONOCYTES % (AUTO) 6.3 %; NEUTROPHILS # (AUTO) 8.9 10^3/uL (1.5-6.6); NEUTROPHILS % (AUTO) 70.5 %; PLT - PLATELET COUNT 307 10^3/uL (130-450); RED BLOOD COUNT 4.59 10^6/uL (4.20-5.40); RED CELL DISTRIBUTION WIDTH 12.7 % (12.0-15.0); WHITE BLOOD COUNT 12.7 x10^3/uL (4.8-10.8)
[2018-06-04 02:40] LABS: ALBUMIN 4.2 g/dL (3.2-5.5); ALBUMIN/GLOBULIN RATIO 1.2 (1.0-2.2); BILIRUBIN,TOTAL 0.4 mg/dL (0.2-1.0); CALCIUM 8.9 mg/dL (8.5-10.3); CREATININE 0.7 mg/dL (0.4-1.0); TOTAL PROTEIN 7.7 g/dL (6.7-8.2)
[2018-06-04 04:21] VITALS: BP 114/86
== END 2018-06-04 04:20 | disposition home or self-care (01) ==
LOC: ED 01:40
DX: R10.10 Upper abdominal pain, unspecified (principal)
CPT/HCPCS: 36415; 80053; 81003; 81025; 83690; 84702; 85025; 99283; Q0162; 81001; 87086

== ENCOUNTER 2018-06-05 15:50 | Emergency (ER) | payer MEDICAID ==
--- NOTE | 2018-06-05 16:00 | ED Physician Documentation ---
PD HPI NVD - Stated complaint Stated Complaint: VOMITING - Chief complaint Chief Complaint: General - History obtained from History obtained from: Patient - History of Present Illness Timing - onset: How many days ago (5-6) Timing - duration: Days Timing - details: Gradual onset, Still present, Waxing and waning Associated symptoms: No: Fever, Abdominal pain, Loss of appetite, Dysuria, Hematuria Contributing factors: No: Sick contact, Bad food, Travel, Recent antibiotics Improved by: No: Vomiting Worsened by: Eating. No: Palpation Similar symptoms before: Has not had sx before Recently seen: Emergency Dept (1 1/2 days ago with similar and had positive but quant only 36. Given Zofran iwth improvement but patient states no Rx given (referred to PCP). With recurent nausea and vomiting after med wore off.) Review of Systems Constitutional: denies: Fever, Chills, Myalgias Nose: denies: Rhinorrhea / runny nose, Congestion Throat: denies: Sore throat Cardiac: denies: Chest pain / pressure Respiratory: denies: Dyspnea, Cough GI: reports: Nausea, Vomiting. denies: Abdominal Pain, Diarrhea, Hematemesis : reports: Missed period, Now EGA (4-5 weeks). denies: Dysuria, Frequency, Discharge Neurologic: reports: Generalized weakness. 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 Psych: Anxiety - Past Surgical History Past Surgical History: Yes - Present Medications Home Medications: Ambulatory Orders Medication Instructions Recorded Confirmed Famotidine [Pepcid] 20 mg PO ONCE #30 tablet 06/05/18 Ondansetron Odt [Zofran] 4 mg TL Q6H PRN #30 tablet 06/05/18 Pyridoxine HCl [Vitamin B-6] 25 mg PO BID #60 tablet 06/05/18 - Allergies Allergies/Adverse Reactions: Allergies Allergy/AdvReac Type Severity Reaction Status Date / Time venom-honey bee AdvReac Unknown Respiratory Verified 06/05/18 15:55 acetaminophen [From Vicodin] AdvReac Itching Verified 06/05/18 15:55 hydrocodone bitartrate * AdvReac Itching Verified 06/05/18 15:55 [From Vicodin] - Social History Does the pt smoke?: Yes Smoking Status: Current every day smoker Does the pt drink ETOH?: No Does the pt have substance abuse?: No - Immunizations Immunizations are current?: Yes - POLST Patient has POLST: No PD ED PE NORMAL - Vitals Vital signs reviewed: Yes - General General: Alert and oriented X 3, No acute distress, Well developed/nourished - HEENT HEENT: Pharynx benign. No: Moist mucous membranes - Neck Neck: Supple, no meningeal sign, No adenopathy - Cardiac Cardiac: RRR, No murmur - Respiratory Respiratory: Clear bilaterally - Abdomen Abdomen: Normal bowel sounds, Soft, Non tender, Non distended, No organomegaly - Female Female : Deferred - Rectal Rectal: Deferred - Back Back: No CVA TTP - Derm Derm: Normal color, Warm and dry Results - Vitals Vitals: Oxygen O2 Source Room air - Labs Labs: Laboratory Tests 06/05/18 06/05/18 06/05/18 16:45 16:45 16:45 WBC 8.8 RBC 4.66 Hgb 13.7 Hct 40.5 MCV 86.9 MCH 29.5 MCHC 34.0 RDW 13.2 Plt Count 314 MPV 8.5 Neut # (Auto) 5.6 Lymph # (Auto) 2.2 [place] # (Auto) 0.7 Eos # (Auto) 0.3 Baso # (Auto) 0.1 Absolute Nucleated RBC 0.00 Nucleated RBC % 0.0 Sodium 134 L Potassium 4.0 Chloride 104 Carbon Dioxide 25 Anion Gap 5.0 L BUN 13 Creatinine 0.6 Estimated GFR (MDRD) 121 Glucose 86 Calcium 9.3 Magnesium 2.0 Total Bilirubin 0.7 AST 24 ALT 22 Alkaline Phosphatase 77 Total Protein 7.9 Albumin 4.0 Globulin 3.9 Albumin/Globulin Ratio 1.0 Lipase 22 HCG, Quant 110.09 Urine Color Urine Clarity Urine pH Ur Specific [place] Urine Protein Urine Glucose (UA) Urine Ketones Urine Occult Blood Urine Nitrite Urine Bilirubin Urine Urobilinogen Ur Leukocyte Esterase Urine RBC Urine WBC Ur Squamous Epith Cells Urine Bacteria Urine Mucus Ur Microscopic Review Urine Culture Comments 06/05/18 16:45 WBC RBC Hgb Hct MCV MCH MCHC RDW Plt Count MPV Neut # (Auto) Lymph # (Auto) [place] # (Auto) Eos # (Auto) Baso # (Auto) Absolute Nucleated RBC Nucleated RBC % Sodium Potassium Chloride Carbon Dioxide Anion Gap BUN Creatinine Estimated GFR (MDRD) Glucose Calcium Magnesium Total Bilirubin AST ALT Alkaline Phosphatase Total Protein Albumin Globulin Albumin/Globulin Ratio Lipase HCG, Quant Urine Color YELLOW Urine Clarity CLEAR Urine pH 6.0 Ur Specific [place] 1.020 Urine Protein NEGATIVE Urine Glucose (UA) NEGATIVE Urine Ketones NEGATIVE Urine Occult Blood NEGATIVE Urine Nitrite NEGATIVE Urine Bilirubin NEGATIVE Urine Urobilinogen 0.2 (NORMAL) Ur Leukocyte Esterase TRACE H Urine RBC 0-5 Urine WBC 4-5 Ur Squamous Epith Cells MANY Squamous H Urine Bacteria Few Urine Mucus Few Strands Ur Microscopic Review INDICATED Urine Culture Comments NOT INDICATED - Rads (name of study) pelvic OB U/S Radiology: Prelim report reviewed (5 week IUP without acute other findings. ), EMP read contemporaneously PD MEDICAL DECISION MAKING - ED course Complexity details: reviewed results (IUP seen on U/S. No other acute process. ) , considered differential, d/w patient - Sepsis Event Vital Signs: Oxygen O2 Source Room air Departure - Departure Disposition: 01 Home, Self Care Clinical Impression: Early stage of , Intrauterine , Vomiting or nausea of Condition: Stable Record reviewed to determine appropriate education?: Yes Instructions: ED Preg Morning Sickness, ED Nausea Vomiting Follow-Up: Gordon Page PA-C [Primary Care Provider] - Prescriptions: Famotidine [Pepcid] 20 mg PO ONCE #30 tablet Ondansetron Odt [Zofran] 4 mg TL Q6H PRN #30 tablet PRN Reason: Nausea / Vomiting Pyridoxine HCl [Vitamin B-6] 25 mg PO BID #60 tablet Comments: Small frequent fluids. Tylenol if needed for mild pains. Ondansetron every 6- 8 hours if needed for nausea and vomiting. Vitamin B6 twice daily for the next month to help reduce the nausea overall. Famotidine daily for the next month as well to reduce stomach acids. These are all safe in . Follow-up with PAPER PROCESSING MACHINE HELPER at the planned appointment upcoming. Discharge Date/Time: 06/05/18 20:38
[2018-06-05] MEDS ORDERED: ONDANSETRON 4 MG/2 ML VIAL IVP STA (16:22)
[2018-06-05] MEDS ORDERED: SODIUM CHLORIDE 0.9% 1,000 ML IV ONE ×2 (16:22→16:23)
[2018-06-05] MEDS ORDERED: FAMOTIDINE 20 MG/2 ML VIAL IVP STA (16:23)
[2018-06-05 17:00] LABS: BILIRUBIN,URINE NEGATIVE (NEGATIVE); GLUCOSE, URINE (UA) NEGATIVE (NEGATIVE); KETONES,URINE (UA) NEGATIVE (NEGATIVE); LEUKOCYTE ESTERASE, URINE TRACE (NEGATIVE); NITRITE,URINE NEGATIVE (NEGATIVE); OCCULT BLOOD,URINE NEGATIVE (NEGATIVE); PROTEIN,URINE NEGATIVE (NEGATIVE); UROBILINOGEN,URINE 0.2 (NORMAL) E.U./dL (NORMAL)
[2018-06-05 17:02] LABS: CLARITY,URINE CLEAR (CLEAR)
[2018-06-05 17:07] LABS: BASOPHILS # (AUTO) 0.1 10^3/uL (0.0-0.1); EOSINOPHILS # (AUTO) 0.3 10^3/uL (0.0-0.7); HGB - HEMOGLOBIN 13.7 g/dL (12.0-16.0); LYMPHOCYTES # (AUTO) 2.2 10^3/uL (1.5-3.5); MONOCYTES # (AUTO) 0.7 10^3/uL (0.0-1.0); NEUTROPHILS # (AUTO) 5.6 10^3/uL (1.5-6.6); WHITE BLOOD COUNT 8.8 x10^3/uL (4.8-10.8)
[2018-06-05 17:08] LABS: BACTERIA,URINE Few /HPF (None Seen); MUCUS,URINE Few Strands; RBC,URINE 0-5 /HPF (0-5); SQUAMOUS EPITHELIAL CELL,UR MANY Squamous (<= Few)
[2018-06-05 17:20] LABS: BILIRUBIN,TOTAL 0.7 mg/dL (0.2-1.0); CALCIUM 9.3 mg/dL (8.5-10.3); CREATININE 0.6 mg/dL (0.4-1.0); TOTAL PROTEIN 7.9 g/dL (6.7-8.2)
[2018-06-05 17:40] LABS: EOSINOPHILS % (AUTO) 3.2 %; MEAN CORPUSCULAR HEMOGLOBIN 29.5 pg (27.0-31.0); MEAN CORPUSCULAR VOLUME 86.9 fL (81.0-99.0); MEAN PLATELET VOLUME 8.5 fL (7.9-10.8); MONOCYTES % (AUTO) 7.6 %; NEUTROPHILS % (AUTO) 63.2 %; PLT - PLATELET COUNT 314 10^3/uL (130-450); RED BLOOD COUNT 4.66 10^6/uL (4.20-5.40); RED CELL DISTRIBUTION WIDTH 13.2 % (12.0-15.0)
--- NOTE | 2018-06-05 19:51 | Ultrasound Report ---
Procedure Date: 06/05/2018 Accession Number: [id number] / [id number] Procedure: US - OB First Trimester CPT Code: FULL RESULT: EXAM: FIRST TRIMESTER OBSTETRIC ULTRASOUND (Less than 11 weeks) EXAM DATE: 06/05/2018 06:48 PM. CLINICAL HISTORY: Right abd pain and early . LMP: 05/04/18. COMPARISONS: None. TECHNIQUE: Transabdominal and transvaginal ultrasound examination with static image documentation. CLINICAL DATES: EGA 4 weeks 4 days with BETH 02/08/19 based on LMP. ASSESSMENT: Gestational Sac: Single intrauterine. Mean gestational sac diameter: 11.2 mm = 5 weeks 1 day. Embryo: Not present Yolk sac: Not seen Amniotic fluid: Not accurately assessed at this gestational age. Early placenta: Not visible at this gestational age. Other: No perigestational fluid collection demonstrated. MATERNAL STRUCTURES: Uterus: Anteverted. Unremarkable. Cervix: Closed. Right Ovary/Adnexa: Unremarkable. The ovary measures 3.8 x 1.8 x 2.0 cm, volume 7.2 cc. Left Ovary/Adnexa: 2 cm likely corpus cyst in the left ovary. The ovary measures 3.1 x 2.9 x 2.8 cm, volume 13.2 cc. Free Fluid: None. Other: None. IMPRESSION: Single intrauterine measuring 5 weeks 1 day by gestational sac diameter. Continued follow-up is recommended to establish viability. RADIA
[2018-06-05 20:39] VITALS: BP 120/72
== END 2018-06-05 20:38 | disposition home or self-care (01) ==
LOC: ED 15:50
DX: O21.9 Vomiting of pregnancy, unspecified (principal); Z3A.01 Less than 8 weeks gestation of pregnancy
CPT/HCPCS: 36415; 76801; 76817; 80053; 81001; 81003; 83690; 83735; 84702; 85025; 87086; 96361; 96374; 99283

== ENCOUNTER 2018-06-22 07:32 | Outpatient (CLI) | payer MEDICAID ==
--- NOTE | 2018-06-22 10:23 | Ultrasound Report ---
Procedure Date: 06/22/2018 Accession Number: [id number] / [id number] Procedure: US - OB First Trimester CPT Code: FULL RESULT: EXAM: FIRST TRIMESTER OBSTETRIC ULTRASOUND (Less than 11 weeks) EXAM DATE: 06/22/2018 08:51 AM. CLINICAL HISTORY: ENCOUNTER FOR TEST, RESULT POSITIVE. LMP: 05/04/18. COMPARISONS: 06/05/2018. TECHNIQUE: Transabdominal and transvaginal ultrasound examination with static image documentation. CLINICAL DATES: EGA 7 weeks 0 days with BETH 02/08/2019 based on LMP. ASSESSMENT: Gestational Sac: Single intrauterine. Mean gestational sac diameter: 15.9 mm . Embryo: CRL (crown-rump length) 3 mm = 5 weeks 6 days. Cardiac activity: 105 beats per minute. Yolk sac: 2.6 mm. Amniotic fluid: Not accurately assessed at this gestational age. Early placenta: Not visible at this gestational age. Other: Small perigestational fluid collection demonstrated 1.3 x 0.5 x 0.9. MATERNAL STRUCTURES: Uterus: Anteverted. Unremarkable. Cervix: Closed. Right Ovary/Adnexa: Unremarkable. The ovary measures 3.9 x 2.9 x 1.8 cm, volume 10.6 cc. Left Ovary/Adnexa: Unremarkable. The ovary measures 3.3 x 2.7 x 2.6 cm, volume 12.1 cc. Small corpus luteum cyst present. Free Fluid: Small. Other: None. IMPRESSION: 1. Single intrauterine at EGA 5 weeks 6 days with BETH 02/16/2019 based on crown-rump length, which is concordant with clinical dates. 2. Assigned dating is BETH 02/16/2019 based on current US. RADIA
== END 2018-06-22 07:33 | disposition home or self-care (01) ==
LOC: DI 07:32
PROVIDERS: ATTEND Obstetrics & Gynecology
DX: Z32.01 Encounter for pregnancy test, result positive (principal)
CPT/HCPCS: 76801; 76817

== ENCOUNTER 2018-06-27 14:08 | Emergency (ER) | payer MEDICAID ==
[2018-06-27 14:26] VITALS: BP 128/69
--- NOTE | 2018-06-27 14:33 | ED Physician Documentation ---
PD HPI ANIMAL BITE - Stated complaint Stated Complaint: DOG BITE, R ARM - Chief complaint Chief Complaint: General - History obtained from History obtained from: Patient, Family - History of Present Illness Location of injury(ies): RUE Details of the event: Dog, Well appearing, Immunization unknown, Provoked. No: Animal control notified Timing - onset: Today Timing - duration: Minutes Timing - details: Abrupt onset, Still present Improved by: Rest Worsened by: Moving Associated symptoms: No: Weakness, Numbness, Tingling, Swelling, Discolored Contributing factors: Other (). No: Immunocompromised Similar symptoms before: Has not had sx before Recently seen: Clinic - Additional information Additional information: 27-year-old female who is 8 weeks was in the parking lot of a [employer] and there was apparently a homeless man with a dog and a cat. She went to pet the kitten and the dog became anxious and bit at her arm. The dog was not aggressive and the dog apologized to the patient following this. The patient did not ask about the dog's immunization status but she did find out that the dog had been a rescue animal. She was not able to contact animal control. Review of Systems Constitutional: denies: Fever Eyes: denies: Decreased vision Ears: denies: Ear pain Nose: denies: Congestion Throat: denies: Dental pain / toothache Cardiac: denies: Chest pain / pressure Respiratory: denies: Dyspnea, Cough GI: reports: Nausea, Vomiting. denies: Abdominal Pain : denies: Dysuria, Frequency Skin: denies: Rash Musculoskeletal: reports: Extremity pain. 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 Psych: Anxiety - Past Surgical History Past Surgical History: Yes /CERAMIC RESTORER: Other - Present Medications Home Medications: Ambulatory Orders Medication Instructions Recorded Confirmed Famotidine [Pepcid] 20 mg PO ONCE #30 tablet 06/05/18 06/27/18 Ondansetron Odt [Zofran] 4 mg TL Q6H PRN #30 tablet 06/05/18 06/27/18 Pyridoxine HCl [Vitamin B-6] 25 mg PO BID #60 tablet 06/05/18 06/27/18 Pnv95/Ferrous Fumarate/FA 06/27/18 [ Formula Tablet] - Allergies Allergies/Adverse Reactions: Allergies Allergy/AdvReac Type Severity Reaction Status Date / Time venom-honey bee AdvReac Unknown Respiratory Verified 06/05/18 15:55 acetaminophen [From Vicodin] AdvReac Itching Verified 06/05/18 15:55 hydrocodone bitartrate * AdvReac Itching Verified 06/27/18 14:14 [From Vicodin] - Social History Does the pt smoke?: Yes Smoking Status: Current every day smoker Does the pt drink ETOH?: No Does the pt have substance abuse?: No - Immunizations Immunizations are current?: Yes - POLST Patient has POLST: No PD ED PE NORMAL - Vitals Vital signs reviewed: Yes (tachy ) - General General: Alert and oriented X 3, No acute distress, Well developed/nourished - HEENT HEENT: Atraumatic, PERRL - Respiratory Respiratory: No respiratory distress - Derm Derm: Normal color, Warm and dry, No rash - Extremities Extremities: No deformity, No edema, Other (There is a superficial abrasion to the right inner arm with underlying bruising about 1cm. The injury does not penetrate the dermis completely distal n/v is intact. ) - Neuro Neuro: Alert and oriented X 3, soundscriber mechanic 2-12 intact, No motor deficit, No sensory deficit, Normal speech Eye Opening: Spontaneous Motor: Obeys Commands Verbal: Oriented GCS Score: 15 - Psych Psych: Normal mood, Normal affect Results - Vitals Vitals: Vital Signs - 24 hr 06/27/18 14:12 Temperature 36.4 C L Heart Rate 103 H Respiratory 20 Rate Blood Pressure 128/69 O2 Saturation 99 Oxygen O2 Source Room air PD MEDICAL DECISION MAKING - ED course Complexity details: considered differential, d/w patient, d/w family ED course: 27-year-old female with a superficial abrasion to her right inner arm from a dog bite does not have complete penetration of the dermis. The wound is cleansed dressed she is up-to-date on her tetanus. The chassis wirer is contacted to report the incident. - Sepsis Event Vital Signs: Vital Signs - 24 hr 06/27/18 14:12 Temperature 36.4 C L Heart Rate 103 H Respiratory 20 Rate Blood Pressure 128/69 O2 Saturation 99 Oxygen O2 Source Room air Departure - Departure Disposition: 01 Home, Self Care Clinical Impression: Dog bite of extremity Condition: Stable Instructions: ED Bite Dog Follow-Up: Gordon Page PA-C [Primary Care Provider] - Discharge Date/Time: 06/27/18 14:43
== END 2018-06-27 14:43 | disposition home or self-care (01) ==
LOC: ED 14:08
DX: O99.89 Other specified diseases and conditions complicating pregnancy, childbirth and the puerperium (principal); S40.871A Other superficial bite of right upper arm, initial encounter; W54.0XXA Bitten by dog, initial encounter; Y93.89 Activity, other specified; Y92.512 Supermarket, store or market as the place of occurrence of the external cause; Z3A.08 8 weeks gestation of pregnancy
CPT/HCPCS: 99282; 99283

== ENCOUNTER 2018-07-15 08:00 | Outpatient (CLI) | payer MEDICAID ==
[2018-07-16 18:34] LABS: MUDS CUTOFF CONCENTRATIONS CUTOFF CONC BELOW:
[2018-07-16 18:55] LABS: AMPHETAMINE SCREEN,URINE NEGATIVE (NEGATIVE); BENZODIAZEPINES SCREEN, URINE NEGATIVE (NEGATIVE); COCAINE SCREEN URINE NEGATIVE (NEGATIVE); METHADONE SCREEN, URINE NEGATIVE (NEGATIVE); METHAMPHETAMINES SCREEN, URINE NEGATIVE (NEGATIVE); OPIATE SCREEN, URINE NEGATIVE (NEGATIVE); OXYCODONE SCREEN, URINE NEGATIVE (NEGATIVE); PROPOXYPHENE SCREEN, URINE NEGATIVE (NEGATIVE); TRICYCLIC ANTIDEPRESSANT,URINE NEGATIVE (NEGATIVE)
== END 2018-07-15 23:59 ==
LOC: LAB.R 08:00
PROVIDERS: ATTEND Nurse Practitioner Obstetrics & Gynecology
DX: Z36.9 Encounter for antenatal screening, unspecified (principal)
CPT/HCPCS: 80306; 87491; 87591

== ENCOUNTER 2018-07-15 14:32 | Outpatient (CLI) | payer MEDICAID ==
[2018-07-15 15:06] LABS: BASOPHILS # (AUTO) 0.1 10^3/uL (0.0-0.1); BASOPHILS % (AUTO) 0.8 %; EOSINOPHILS # (AUTO) 0.2 10^3/uL (0.0-0.7); EOSINOPHILS % (AUTO) 1.8 %; HGB - HEMOGLOBIN 12.6 g/dL (12.0-16.0); LYMPHOCYTES # (AUTO) 1.8 10^3/uL (1.5-3.5); LYMPHOCYTES % (AUTO) 18.5 %; MEAN CORPUSCULAR HEMOGLOBIN 30.6 pg (27.0-31.0); MEAN CORPUSCULAR HGB CONC 35.2 g/dL (32.0-36.0); MEAN CORPUSCULAR VOLUME 86.8 fL (81.0-99.0); MEAN PLATELET VOLUME 8.2 fL (7.9-10.8); MONOCYTES # (AUTO) 0.6 10^3/uL (0.0-1.0); MONOCYTES % (AUTO) 6.5 %; NEUTROPHILS % (AUTO) 72.4 %; PLT - PLATELET COUNT 259 10^3/uL (130-450); RED BLOOD COUNT 4.11 10^6/uL (4.20-5.40); RED CELL DISTRIBUTION WIDTH 13.5 % (12.0-15.0); WHITE BLOOD COUNT 9.6 x10^3/uL (4.8-10.8)
[2018-07-15 15:18] LABS: BILIRUBIN,URINE NEGATIVE (NEGATIVE); GLUCOSE, URINE (UA) NEGATIVE (NEGATIVE); KETONES,URINE (UA) TRACE mg/dL (NEGATIVE); LEUKOCYTE ESTERASE, URINE SMALL (NEGATIVE); NITRITE,URINE NEGATIVE (NEGATIVE); OCCULT BLOOD,URINE NEGATIVE (NEGATIVE); PROTEIN,URINE TRACE mg/dL (NEGATIVE); UROBILINOGEN,URINE 1 (NORMAL) E.U./dL (NORMAL)
[2018-07-15 15:50] LABS: BACTERIA,URINE Many /HPF (None Seen); CLARITY,URINE HAZY (CLEAR); CRYSTALS,URINE 6-10 Calcium Oxalate /LPF; MUCUS,URINE Moderate Strands; RBC,URINE 0-5 /HPF (0-5); SQUAMOUS EPITHELIAL CELL,UR MANY Squamous (<= Few)
[2018-07-17 15:51] LABS: HIV AG/AB 4TH GEN NON-REACTIVE (NON-REACTIVE)
[2018-07-17 16:32] LABS: HEPATITIS B SURFACE ANTIGEN NON-REACTIVE (NON-REACTIVE); HEPATITIS C ANTIBODY NON-REACTIVE (NON-REACTIVE)
== END 2018-07-15 14:33 | disposition home or self-care (01) ==
LOC: LAB 14:32
PROVIDERS: ATTEND Nurse Practitioner Obstetrics & Gynecology
DX: Z36.9 Encounter for antenatal screening, unspecified (principal)
CPT/HCPCS: 36415; 81001; 81599; 85025; 86762; 86803; 86850; 86900; 86901; 87340; 87389

== ENCOUNTER 2020-07-05 20:00 | Emergency (ER) | payer MEDICAID ==
[2020-07-05 20:08] VITALS: BP 129/103
--- NOTE | 2020-07-05 20:24 | ED Physician Documentation ---
PD HPI UPPER EXT INJURY - Stated complaint Stated Complaint: RT HAND PX - Chief complaint Chief Complaint: Ext Problem - History of Present Illness Location: Right, Hand Type of injury: Blunt / blow Where injury occurred: Home Improved by: Rest, Ice, Immobilization Worsened by: Moving, Palpating Associated symptoms: Swelling. No: Weakness, Numbness Contributing factors: Prior ortho surgery - Additonal information Additional information: 29-year-old female presents to the emergency department with acute right lateral hand pain that began this evening when she became frustrated and angry and punched her wooden deck twice forcefully. She does have a history of previous right hand injury and a boxer's fracture in the past from a similar event. Patient is right-handed. She denies any diabetes. Review of Systems Constitutional: reports: Reviewed and negative Eyes: reports: Reviewed and negative Ears: reports: Reviewed and negative. 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 : None HEENT: None Psych: Anxiety Musculoskeletal: None Derm: Eczema - Past Surgical History Past Surgical History: Yes /BATTER DEPOSITOR: Tubal ligation, Other - Present Medications Home Medications: Ambulatory Orders Medication Instructions Recorded Confirmed Famotidine [Pepcid] 20 mg PO ONCE #30 tablet 06/05/18 06/27/18 Ondansetron Odt [Zofran] 4 mg TL Q6H PRN #30 tablet 06/05/18 06/27/18 Pyridoxine HCl (Vitamin B6) 25 mg PO BID #60 tablet 06/05/18 06/27/18 [Vitamin B-6] Pnv No.95/Ferrous Fum/Folic AC 06/27/18 [ Formula Tablet] - Allergies Allergies/Adverse Reactions: Allergies Allergy/AdvReac Type Severity Reaction Status Date / Time venom-honey bee AdvReac Unknown Respiratory Verified 06/05/18 15:55 acetaminophen [From Vicodin] AdvReac Itching Verified 06/05/18 15:55 hydrocodone bitartrate * AdvReac Itching Verified 06/27/18 14:14 [From Vicodin] - Social History Does the pt smoke?: Yes Smoking Status: Current every day smoker Does the pt drink ETOH?: No Does the pt have substance abuse?: No - Immunizations Immunizations are current?: Yes - POLST Patient has POLST: No PD ED PE NORMAL - General General: Alert and oriented X 3, No acute distress, Well developed/nourished - HEENT HEENT: EOMI - Cardiac Cardiac: RRR, No murmur - Respiratory Respiratory: No respiratory distress - Derm Derm: Normal color, Warm and dry, No rash - Extremities Extremities: No deformity. No: No tenderness to palpate, Normal ROM s pain (Tenderness right hand over the fourth and fifth metacarpals with mild swelling but no crepitus, deformity or ecchymosis. Normal flexion and extension of the wrist. 2+ radial pulse. No snuffbox tenderness. Brisk cap refill) Results - Vitals Vitals: Vital Signs - 24 hr 07/05/20 07/05/20 20:04 20:12 Temperature 36.3 C L 36.3 C L Heart Rate 120 H 120 H Respiratory 18 18 Rate Blood Pressure 129/103 H 129/103 H O2 Saturation 98 98 Oxygen O2 Source Room air - Rads (name of study) right hand: Radiology: Final report received (No acute fracture or dislocation. If pain persist consider repeat imaging in 5 to 7 days to exclude occult fracture) PD MEDICAL DECISION MAKING - ED course Complexity details: reviewed results, considered differential, d/w patient ED course: 21-year-old female here with acute right lateral hand pain after punching a wooden floor multiple times in anger. She does have a history of a previous hand fracture over similar circumstances a few years ago. She had tenderness ov er the fourth and fifth metacarpals but no obvious deformity or ecchymosis. X- ray today does not show any obvious fracture. She is placed in a Velcro hand splint and advised ibuprofen or Tylenol for pain. If not markedly better in 5 to 7 days return for repeat x-ray to rule out occult [id number] female here with acute right lateral hand pain after punching a wooden floor multiple times in anger. She does have a history of a previous hand fracture over similar circumstances a few years ago. She had tenderness over the fourth and fifth metacarpals but no obvious deformity or ecchymosis. X-ray today does not show any obvious fracture. She is placed in a Velcro hand splint and advised ibuprofen or Tylenol for pain. If not markedly better in 5 to 7 days return for repeat x-ray to rule out occult fracture Departure - Departure Disposition: 01 Home, Self Care Clinical Impression: Hand pain, right Condition: Stable Record reviewed to determine appropriate education?: Yes Comments: The x-ray of her hand does not show anything obviously broken. It is most likely that you have contused your hand after punching the floor. I would recommend that you wear the splint provided when out of bed for the next 5 to 7 days. Please take Tylenol or ibuprofen [id number] for pain control. Your symptoms are not markedly better and 7 to 10 days return to the ER for repeat evaluation and x-ray.
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
== END 2020-07-05 21:08 | disposition home or self-care (01) ==
LOC: ED 20:00
DX: M79.641 Pain in right hand (principal); W22.09XA Striking against other stationary object, initial encounter; Y92.008 Other place in unspecified non-institutional (private) residence as the place of occurrence of the external cause; F17.200 Nicotine dependence, unspecified, uncomplicated
CPT/HCPCS: 99283; 99284

== ENCOUNTER 2020-10-25 22:45 | Emergency (ER) | payer MEDICAID ==
--- NOTE | 2020-10-25 22:53 | ED Physician Documentation ---
PD HPI LOWER EXT INJURY - Stated complaint Stated Complaint: LT ANKLE PX - Chief complaint Chief Complaint: Trauma Ext - History obtained from History obtained from: Patient - History of Present Illness PD HPI LOW EXT INJURY LOCATION: Left, Ankle Type of injury: Blunt / blow (bluetooth speaker accidentally knocked from counter and landed onto her dorsal ankle. 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 : None HEENT: None Psych: Anxiety Musculoskeletal: None Derm: Eczema - Past Surgical History Past Surgical History: Yes /DIVER'S TENDER: Tubal ligation, Other - Allergies Allergies/Adverse Reactions: Allergies Allergy/AdvReac Type Severity Reaction Status Date / Time venom-honey bee AdvReac Unknown Respiratory Verified 06/05/18 15:55 - Social History Does the pt smoke?: Yes Smoking Status: Current every day smoker Does the pt drink ETOH?: No Does the pt have substance abuse?: No - Immunizations Immunizations are current?: Yes - POLST Patient has POLST: No PD ED PE NORMAL - Vitals Vital signs reviewed: Yes - General General: Alert and oriented X 3, Well developed/nourished - Derm Derm: Normal color, Warm and dry - Extremities Extremities: Other (anterior left ankle with local swelling and tenderness. Distal foot not tender. ) - Neuro Neuro: No motor deficit, No sensory deficit Results - Vitals Vitals: Vital Signs - 24 hr 10/25/20 22:48 Temperature 36.6 C Heart Rate 102 H Respiratory 18 Rate Blood Pressure 130/72 O2 Saturation 99 Oxygen O2 Source Room air - Rads (name of study) left ankle Radiology: Prelim report reviewed (no fractures), See rad report PD MEDICAL DECISION MAKING - ED course Complexity details: reviewed results (no fractures), considered differential, d/w patient Departure - Departure Disposition: 01 Home, Self Care Clinical Impression: Contusion of ankle or foot, left Condition: Stable Record reviewed to determine appropriate education?: Yes Instructions: ED Contusion Lower Ext Comments: Your x-ray appears good without any fractures. The contusion and swelling can still hurt for a few days. Use the ankle brace to support the ankle movement and your crutches at home if you need for partial or nonweightbearing. Progress weightbearing as tolerated. Continue the ankle support for several days to week or so until this is fully healed. Elevate ice and rest your ankle often tonight and tomorrow to reduce swelling. Tylenol or ibuprofen or naproxen as needed for pains. Recheck if not better over the next several days to week. Discharge Date/Time: 10/26/20 00:05
[2020-10-25 22:57] VITALS: BP 130/72
[2020-10-25] MEDS ORDERED: oxyCODONE 5 MG TABLET PO STA (23:12)
[2020-10-25] MEDS ORDERED: IBUPROFEN 600 MG TABLET PO STA (23:12)
--- NOTE | 2020-10-26 08:41 | XRAY Report ---
PROCEDURE: Ankle 3 View LT INDICATIONS: dropped object on lateral ankle TECHNIQUE: 3 views of the ankle were acquired. COMPARISON: None FINDINGS: Bones: No fractures or dislocations. Ankle mortise is normally aligned. No suspicious bony lesions . Soft tissues: No tibiotalar joint effusion. Achilles tendon appears normal. IMPRESSION: No trauma found. No discrete focus of soft tissue swelling seen. Reviewed by: Jose Palafox MD on 10/26/2020 8:40 AM PST Approved by: Jose Palafox MD on 10/26/2020 8:40 AM PST Station ID: [id number]
== END 2020-10-26 00:05 | disposition home or self-care (01) ==
LOC: ED 22:45
DX: F17.200 Nicotine dependence, unspecified, uncomplicated (principal); S90.02XA Contusion of left ankle, initial encounter; W20.8XXA Other cause of strike by thrown, projected or falling object, initial encounter; Y92.009 Unspecified place in unspecified non-institutional (private) residence as the place of occurrence of the external cause
CPT/HCPCS: 73610; 99282; 99283; A9270

== ENCOUNTER 2020-12-01 00:41 | Emergency (ER) | payer MEDICAID ==
--- NOTE | 2020-12-01 01:14 | ED Physician Documentation ---
PD HPI HEADACHE - Stated complaint Stated Complaint: MIGRANE, N/V - Chief complaint Chief Complaint: Heent - History obtained from History obtained from: Patient - History of Present Illness Timing - onset: Today Timing - onset during: Light activity Timing - duration: Hours (12) Timing - details: Gradual onset, Still present Worst headache ever?: No: Worst headache ever? (feeling similar to other migraines.) Location: Back, Left Quality: Throbbing, Aching Associated symptoms: Nausea, Vomiting (once today), Eye pain (to light). No: Fever, Stiff neck, Weakness, Numbness, Vision changes Worsened by: Light, Noise Contributing factors: No: Hypertension, Recent illness, Trauma Similar symptoms before: Diagnosis (migraines, without any Rx for migraine specific therapy from her PCP, according to the patient.) Recently seen: Not recently seen Review of Systems Constitutional: denies: Fever, Chills Eyes: reports: Photophobia Ears: reports: Tinnitus/ringing. denies: Ear pain, Drainage/discharge Nose: denies: Rhinorrhea / runny nose Throat: denies: Dental pain / toothache Cardiac: denies: Chest pain / pressure, Palpitations Respiratory: denies: Dyspnea, Cough GI: reports: Nausea, Vomiting (once at home). denies: Diarrhea Neurologic: reports: Headache. 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 Living Arrangement: reports: At home - Social History Does the pt smoke?: Yes Smoking Status: Current every day smoker Does the pt drink ETOH?: No Does the pt have substance abuse?: No - Immunizations Immunizations are current?: Yes - POLST Patient has POLST: No PD ED PE NORMAL - Vitals Vital signs reviewed: Yes - General General: Alert and oriented X 3, Well developed/nourished, Other (appears uncomfortable, particularly with light exposure, and is desiring lights out. ) - HEENT HEENT: PERRL, EOMI, Moist mucous membranes, Pharynx benign - Neck Neck: Supple, no meningeal sign, No adenopathy - Cardiac Cardiac: RRR, No murmur - Respiratory Respiratory: Clear bilaterally - Derm Derm: Normal color, Warm and dry - Neuro Neuro: Alert and oriented X 3, frame maker 2-12 intact, No motor deficit, No sensory deficit, Normal speech, Other Eye Opening: Spontaneous Motor: Obeys Commands Verbal: Oriented GCS Score: 15 - Psych Psych: Normal mood, Normal affect Results - Vitals Vitals: Vital Signs - 24 hr 12/01/20 12/01/20 00:45 02:29 Temperature 36.0 C L Heart Rate 76 72 Respiratory 17 18 Rate Blood Pressure 129/91 H 110/67 O2 Saturation 99 97 Oxygen O2 Source Room air PD MEDICAL DECISION MAKING - ED course Complexity details: re-evaluated patient (improved quite a bit with meds IM. She states she comes to ER with her migraines (her or more often [place]) as has not been given Rx of migraine meds to trial at home. ), considered differential (sounds like migraine without red flags to suggest need for testing/imaging. ), d/w patient Departure - Departure Disposition: Home, Self Care Clinical Impression: Migraine headache Qualifiers: Migraine type: unspecified Status migrainosus presence: without status migrainosus Intractability: not intractable Qualified Code(s): G43.909 - Migraine, unspecified, not intractable, without status migrainosus Condition: Stable Record reviewed to determine appropriate education?: Yes Instructions: ED Headache Migraine Prescriptions: Naproxen Sodium [Anaprox Ds] 550 mg PO BID PRN #10 tablet PRN Reason: Pain Sumatriptan Succinate [Imitrex] 50 mg PO Q4H PRN #6 tablet PRN Reason: Migraine Ondansetron Odt [Zofran] 4 mg TL Q6H PRN #10 tablet PRN Reason: Nausea / Vomiting Comments: Home and rest and stay well-hydrated. Tylenol if needed for residual headache. For subsequent migraine headaches, try a combination of sumatriptan with ondansetron and naproxen and see if this combination gets rid of the headache at home. Return to the ER as needed. Follow-up with your primary care regarding further antimigraine type treatments. Discharge Date/Time: 12/01/20 02:29
[2020-12-01] MEDS ORDERED: KETOROLAC 30 MG/ML VIAL IM STA (01:30)
[2020-12-01] MEDS ORDERED: PROMETHAZINE 25 MG/1 ML VIAL IM STA (01:31)
[2020-12-01] MEDS ORDERED: DEXAMETHASONE 10 MG/ML VIAL PO STA (01:31)
[2020-12-01] MEDS ORDERED: CHERRY SYRUP 10 ML UDC PO ONE (01:31)
[2020-12-01 02:30] VITALS: BP 110/67
== END 2020-12-01 02:29 | disposition home or self-care (01) ==
LOC: ED 00:41
DX: G43.909 Migraine, unspecified, not intractable, without status migrainosus (principal); F17.200 Nicotine dependence, unspecified, uncomplicated
CPT/HCPCS: 96372; 99283; 99284; A9270

== ENCOUNTER 2023-07-13 23:58 | Emergency (ER) | payer OTHER, MEDICAID ==
[2023-07-14 00:09] VITALS: BP 118/74; O2SAT 96
[2023-07-14] MEDS ORDERED: ACETAMINOPHEN 325 MG TABLET PO STA (00:14)
[2023-07-14] MEDS ORDERED: IBUPROFEN 400 MG TABLET PO STA (00:14)
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
--- NOTE | 2023-07-14 01:04 | XRAY Report ---
PROCEDURE: Hand 3 View RT INDICATIONS: Trauma TECHNIQUE: 3 views of the right hand acquired. COMPARISON: None. FINDINGS: Bones: No acute fractures or dislocation. There is bowing of the fifth metacarpal consistent with se quelae of a chronic fracture. No suspicious bony lesions. Soft tissues: No suspicious soft tissue calcifications or masses. IMPRESSION: 1. No acute fracture or dislocation. Reviewed by: Ariel Khan MD on 07/14/2023 1:03 AM PDT Approved by: Ariel Khan MD on 07/14/2023 1:03 AM PDT Station ID: [id number]
== END 2023-07-14 01:12 | disposition home or self-care (01) ==
LOC: ED 23:58
DX: S60.221A Contusion of right hand, initial encounter (principal); W50.0XXA Accidental hit or strike by another person, initial encounter; Y92.129 Unspecified place in nursing home as the place of occurrence of the external cause; Y99.0 Civilian activity done for income or pay; F17.200 Nicotine dependence, unspecified, uncomplicated
CPT/HCPCS: 1040M; 99283

== ENCOUNTER 2023-08-03 21:10 | Emergency (ER) | payer MEDICAID, OTHER ==
[2023-08-03] MEDS ORDERED: IPRATROPIUM/ALBUTEROL 3 ML NEB INH STA ×2 (21:22→23:02)
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
[2023-08-03] MEDS ORDERED: predniSONE 20 MG TABLET PO STA (21:52)
[2023-08-03 23:05] LABS: CORONAVIRUS 229E-RESP PCR NOT DETECTED; CORONAVIRUS HKU1-RESP PCR NOT DETECTED; CORONAVIRUS NL63-RESP PCR NOT DETECTED; CORONAVIRUS OC43-RESP PCR NOT DETECTED
[2023-08-03 23:07] LABS: B. PARAPERTUSSIS- RESP PCR PAN NOT DETECTED; B. PERTUSSIS- RESP PCR PANEL NOT DETECTED; C. PNEUMONIAE- RESP PCR PANEL NOT DETECTED; HUMAN METAPNEUMOVIRUS NOT DETECTED; INFLUENZA A- RESP PCR PANEL NOT DETECTED; INFLUENZA B - RESP PCR PANEL NOT DETECTED; M. PNEUMONIAE- RESP PCR PANEL NOT DETECTED; PARAINFLUENZA VIRUS 1 NOT DETECTED; PARAINFLUENZA VIRUS 2 NOT DETECTED; PARAINFLUENZA VIRUS 3 NOT DETECTED; PARAINFLUENZA VIRUS 4 NOT DETECTED; RHINOVIRUS/ENTEROVIRUS NOT DETECTED; RSV- RESP PCR PANEL NOT DETECTED; SARS-CoV-2 -RESP PCR PANEL DETECTED
[2023-08-03] MEDS ORDERED: NIRMATRELVIR/RITONAVIR PREPACK PO STA (23:27)
--- NOTE | 2023-08-03 23:29 | ED Physician Documentation ---
PD HPI DYSPNEA - Stated complaint Stated Complaint: SOA - Chief complaint Chief Complaint: Resp - History obtained from History obtained from: Patient - Additional information Additional information: Patient is a 32-year-old female with a history of asthma presenting for evaluation of feeling short of breath starting today.She denies fever or cough. Does not currently have inhalers. No chest pain.No abdominal symptoms. No recent travel or immobilization or history of PE. Review of Systems Constitutional: denies: Fever Cardiac: denies: Chest pain / pressure Respiratory: reports: Dyspnea. denies: Cough GI: denies: Abdominal Pain PD PAST MEDICAL HISTORY - Past Medical History Past Medical History: Yes Cardiovascular: None Respiratory: Asthma Neuro: Migraines Endocrine/Autoimmune: None GI: GERD MOLDER MEAT: Ovarian cysts : None HEENT: None Psych: Anxiety Musculoskeletal: None Derm: Eczema - Past Surgical History Past Surgical History: Yes /MOLDER MEAT: Tubal ligation, Other - Present Medications Home Medications: Ambulatory Orders Medication Instructions Recorded Confirmed Albuterol Sulf [Ventolin Hfa 1 - 2 puffs INH Q4HR PRN #1 each 08/03/23 Inhaler] predniSONE [Deltasone] 60 mg PO DAILY 5 Days #15 tablet 08/03/23 - Allergies Allergies/Adverse Reactions: Allergies Allergy/AdvReac Type Severity Reaction Status Date / Time venom-honey bee AdvReac Unknown Respiratory Verified 08/03/23 21:18 - Social History Does the pt smoke?: Yes Smoking Status: Current every day smoker Does the pt drink ETOH?: No Does the pt have substance abuse?: No - Immunizations Immunizations are current?: Yes - POLST Patient has POLST: No PD ED PE NORMAL - General General: Alert and oriented X 3, No acute distress, Well developed/nourished - HEENT HEENT: Atraumatic, Moist mucous membranes, Pharynx benign - Neck Neck: Supple, no meningeal sign - Cardiac Cardiac: Other (Tachycardic, regular rhythm) - Respiratory Respiratory: No respiratory distress, Other (Diffuse expiratory wheezing) - Abdomen Abdomen: Soft, Non tender - Derm Derm: Warm and dry - Extremities Extremities: No edema, No calf tenderness / cord Results - Vitals Vitals: Vital Signs - 24 hr 08/03/23 08/03/23 08/03/23 21:13 21:35 21:45 Temperature 36.8 C Heart Rate 104 H 118 H 113 H Respiratory 18 20 18 Rate Blood Pressure 121/85 H 135/100 H O2 Saturation 96 95 08/03/23 08/03/23 08/03/23 22:45 23:10 23:16 Temperature Heart Rate 103 H 100 Respiratory 18 20 18 Rate Blood Pressure O2 Saturation 99 Oxygen O2 Source Room air - Labs Labs: Laboratory Tests 08/03/23 22:05 Nasal Adenovirus (PCR) NOT DETECTED Nasal B. parapertussis DNA (PCR) NOT DETECTED Nasal Coronavir 229E PCR NOT DETECTED Nasal Coronavir HKU1 PCR NOT DETECTED Nasal Coronavir NL63 PCR NOT DETECTED Nasal Coronavir OC43 PCR NOT DETECTED Nasal Enterovir/Rhinovir PCR NOT DETECTED Nasal Influenza B PCR NOT DETECTED Nasal Influenza A PCR NOT DETECTED Nasal Parainfluen 1 PCR NOT DETECTED Nasal Parainfluen 2 PCR NOT DETECTED Nasal Parainfluen 3 PCR NOT DETECTED Nasal Parainfluen 4 PCR NOT DETECTED Nasal RSV (PCR) NOT DETECTED Nasal B.pertussis DNA PCR NOT DETECTED Nasal C.pneumoniae (PCR) NOT DETECTED [place]ill Human Metapneumo PCR NOT DETECTED Nasal M.pneumoniae (PCR) NOT DETECTED Nasal SARS-CoV-2 (PCR) DETECTED A PD Medical Decision Making - ED course Complexity details: reviewed results, re-evaluated patient, d/w patient ED course: Patient with a history of asthma presenting for evaluation of shortness of air today. Wheezing on exam. Slightly tachycardic. No risk factors for PE. Patient was given 2 neb treatments and started on p.o. prednisone. Chest x-ray which I reviewed is negative for pneumonia. Respiratory swab is positive for COVID. She is feeling better after treatments here and is no longer wheezing. She has a history of asthma and has an elevated BMI she does qualify for Paxlovid treatment. I discussed risks and benefits of this medications. She is not on any home medications. She is agreeable to Paxlovid. Patient counseled on treatment plan as well as concerning symptoms to return for. Departure - Departure Disposition: 01 Home, Self Care Clinical Impression: COVID-19, Asthma exacerbation Condition: Stable Instructions: ED Bronchitis Asthmatic Prescriptions: Albuterol Sulf [Ventolin Hfa Inhaler] 1 - 2 puffs INH Q4HR PRN #1 each PRN Reason: Shortness Of Air/Wheezing predniSONE [Deltasone] 60 mg PO DAILY 5 Days #15 tablet Comments: You tested positive for COVID-19. This appears to be triggering your asthma. I have sent prescriptions for an albuterol inhaler as well as a short course of prednisone to [facility] in [place]. You have also been given a medication called Paxlovid which is an antiviral medication to help prevent hospitalizations in patients were considered high risk with COVID-19. Please continue to quarantine per CDC guidelines. If at anytime your breathing feels more labored or you have any new symptoms please return to the emergency department. Forms: PCP List
--- NOTE | 2023-08-03 23:43 | XRAY Report ---
PROCEDURE: Chest 1 View X-Ray INDICATIONS: SOA TECHNIQUE: One view of the chest was acquired. COMPARISON: 09/12/2016 FINDINGS: Surgical changes and devices: None. Lungs and pleura: No pleural effusions or pneumothorax. Lungs are clear. Mediastinum: Mediastinal contours appear normal. Heart size is normal. Bones and chest wall: No suspicious bony lesions. Overlying soft tissues appear unremarkable. IMPRESSION: No acute radiographic abnormality on this single view chest. Reviewed by: Raul Samuels MD on 08/03/2023 11:41 PM PDT Approved by: Raul Samuels MD on 08/03/2023 11:41 PM PDT Station ID: [id number]
[2023-08-04 05:19] VITALS: BP 124/72; O2SAT 98
== END 2023-08-03 23:53 | disposition home or self-care (01) ==
LOC: ED 21:10
DX: U07.1 COVID-19 (principal); J45.901 Unspecified asthma with (acute) exacerbation; F17.200 Nicotine dependence, unspecified, uncomplicated
CPT/HCPCS: 71045; 87633; 94640; 94664; 99284; J3490; J7512

== ENCOUNTER 2024-01-08 10:52 | Emergency (ER) | payer MEDICAID ==
[2024-01-08 11:29] LABS: BILIRUBIN,URINE NEGATIVE (NEGATIVE); GLUCOSE, URINE (UA) NEGATIVE (NEGATIVE); KETONES,URINE (UA) NEGATIVE (NEGATIVE); LEUKOCYTE ESTERASE, URINE TRACE (NEGATIVE); NITRITE,URINE NEGATIVE (NEGATIVE); OCCULT BLOOD,URINE NEGATIVE (NEGATIVE); PH,URINE 5.5 PH (5.0-7.5); PROTEIN,URINE NEGATIVE (NEGATIVE); UROBILINOGEN,URINE 0.2 (NORMAL) E.U./dL (NORMAL)
[2024-01-08 11:30] LABS: BASOPHILS # (AUTO) 0.1 10^3/uL (0.0-0.1); BASOPHILS % (AUTO) 0.7 %; EOSINOPHILS # (AUTO) 0.5 10^3/uL (0.0-0.7); EOSINOPHILS % (AUTO) 4.8 %; HCT - HEMATOCRIT 41.9 % (37.0-47.0); LYMPHOCYTES # (AUTO) 2.9 10^3/uL (1.5-3.5); LYMPHOCYTES % (AUTO) 29.8 %; MEAN CORPUSCULAR HEMOGLOBIN 29.6 pg (27.0-31.0); MEAN CORPUSCULAR HGB CONC 33.4 g/dL (32.0-36.0); MEAN CORPUSCULAR VOLUME 88.6 fL (81.0-99.0); MEAN PLATELET VOLUME 9.6 fL (7.9-10.8); MONOCYTES # (AUTO) 0.6 10^3/uL (0.0-1.0); MONOCYTES % (AUTO) 6.6 %; NEUTROPHILS # (AUTO) 5.6 10^3/uL (1.5-6.6); NEUTROPHILS % (AUTO) 57.9 %; PLT - PLATELET COUNT 334 10^3/uL (130-450); RED BLOOD COUNT 4.73 10^6/uL (4.20-5.40); RED CELL DISTRIBUTION WIDTH 12.5 % (12.0-15.0); WHITE BLOOD COUNT 9.6 x10^3/uL (4.8-10.8)
[2024-01-08 11:30] LABS: CLARITY,URINE CLEAR (CLEAR)
[2024-01-08 11:47] LABS: ALBUMIN 4.3 g/dL (3.2-5.5); ALBUMIN/GLOBULIN RATIO 1.5 (1.0-2.2); ALKALINE PHOSPHATASE 71 IU/L (42-121); ALT ALANINE AMINOTRANSFERASE 20 IU/L (10-60); AST ASPARTATE AMINOTRANSFERASE 20 IU/L (10-42); BILIRUBIN,TOTAL 0.4 mg/dL (0.2-1.0); BUN - BLOOD UREA NITROGEN 12 mg/dL (6-20); CALCIUM 9.5 mg/dL (8.5-10.3); CARBON DIOXIDE - CO2 25 mmol/L (21-32); CHLORIDE 105 mmol/L (101-111); CREATININE 0.7 mg/dL (0.6-1.3); GFR - MDRD 97 (>89); GLUCOSE 94 mg/dL (74-104); LIPASE < 10 U/L (11-82); POTASSIUM 4.1 mmol/L (3.5-4.5); SODIUM 136 mmol/L (135-145); TOTAL PROTEIN 7.1 g/dL (6.4-8.9)
[2024-01-08 11:52] LABS: WBC,URINE 0-3 /HPF (0-5)
[2024-01-08 11:53] LABS: BACTERIA,URINE Few /HPF (None Seen); RBC,URINE 0-5 /HPF (0-5); SQUAMOUS EPITHELIAL CELL,UR FEW Squamous (<= Few)
[2024-01-08] MEDS ORDERED: iohexoL-300 100 ML VIAL ONE (12:11)
--- NOTE | 2024-01-08 12:18 | ED Physician Documentation ---
PD HPI ABD PAIN - Stated complaint Stated Complaint: RT SIDE PX,FEELING HOT - Chief complaint Chief Complaint: Abd Pain - History obtained from History obtained from: Patient - Additional information Additional information: Patient is a 33-year-old female with a history of prior cholecystectomy and partial hysterectomy presenting for evaluation of right flank to right abdominal pain starting this morning. She describes it as a stabbing pain. Nothing makes it better or worse. No fever, cough or congestion. No nausea or vomiting. Denies dysuria, hematuria. Denies history of kidney stones. She has not tried anything for the pain. Reports having a low-grade fever of 99 over the past few days. Review of Systems Constitutional: reports: Fever (Subjective) Cardiac: denies: Chest pain / pressure Respiratory: denies: Dyspnea GI: reports: Abdominal Pain. 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, Other - Present Medications Home Medications: Ambulatory Orders Medication Instructions Recorded Confirmed No Known Home Medications 01/08/24 01/08/24 - Allergies Allergies/Adverse Reactions: Allergies Allergy/AdvReac Type Severity Reaction Status Date / Time venom-honey bee AdvReac Unknown Respiratory Verified 01/08/24 11:14 - Social History Does the pt smoke?: Yes Smoking Status: Current every day smoker Does the pt drink ETOH?: No Does the pt have substance abuse?: No - Immunizations Immunizations are current?: Yes - POLST Patient has POLST: No PD ED PE NORMAL - General General: Alert and oriented X 3, No acute distress, Well developed/nourished - HEENT HEENT: Atraumatic, Moist mucous membranes, Pharynx benign - Neck Neck: Supple, no meningeal sign - Cardiac Cardiac: RRR, Strong equal pulses - Respiratory Respiratory: No respiratory distress, Clear bilaterally - Abdomen Abdomen: Normal bowel sounds, Soft, Non distended, Other (Right upper and lower quadrant tenderness) - Back Back: Other (Right CVA tenderness) - Derm Derm: Warm and dry - Neuro Neuro: Normal speech Results - Vitals Vitals: Vital Signs - 24 hr 01/08/24 01/08/24 01/08/24 11:09 12:45 14:02 Temperature 36.6 C Heart Rate 90 71 79 Respiratory 16 16 17 Rate Blood Pressure 126/80 118/74 104/65 O2 Saturation 99 96 97 Oxygen O2 Source Room air - EKG (time done) 1304 EKG releavant findings:: EKG personally interpreted by author of this note. Relevant findings are: Rate 71, normal sinus rhythm, ventricular bigeminy, No STEMI - Labs Labs: Laboratory Tests 01/08/24 01/08/24 01/08/24 11:23 11:23 11:25 WBC 9.6 RBC 4.73 Hgb 14.0 Hct 41.9 MCV 88.6 MCH 29.6 MCHC 33.4 RDW 12.5 Plt Count 334 MPV 9.6 Neut # (Auto) 5.6 Lymph # (Auto) 2.9 Glynn # (Auto) 0.6 Eos # (Auto) 0.5 Baso # (Auto) 0.1 Absolute Nucleated RBC 0.00 Nucleated RBC % 0.0 Sodium Potassium Chloride Carbon Dioxide Anion Gap BUN Creatinine Estimated GFR (MDRD) Glucose Calcium Total Bilirubin AST ALT Alkaline Phosphatase Troponin I High Sens Total Protein Albumin Globulin Albumin/Globulin Ratio Lipase Urine Color DARK YELLOW Urine Clarity CLEAR Urine pH 5.5 Ur Specific [place] >=1.030 H Urine Protein NEGATIVE Urine Glucose (UA) NEGATIVE Urine Ketones NEGATIVE Urine Occult Blood NEGATIVE Urine Nitrite NEGATIVE Urine Bilirubin NEGATIVE Urine Urobilinogen 0.2 (NORMAL) Ur Leukocyte Esterase TRACE H Urine RBC 0-5 Urine WBC 0-3 Ur Squamous Epith Cells FEW Squamous Urine Bacteria Few Ur Microscopic Review INDICATED Urine Culture Comments INDICATED Urine HCG, Qual NEGATIVE 01/08/24 01/08/24 11:25 11:25 WBC RBC Hgb Hct MCV MCH MCHC RDW Plt Count MPV Neut # (Auto) Lymph # (Auto) Glynn # (Auto) Eos # (Auto) Baso # (Auto) Absolute Nucleated RBC Nucleated RBC % Sodium 136 Potassium 4.1 Chloride 105 Carbon Dioxide 25 Anion Gap 6.0 BUN 12 Creatinine 0.7 Estimated GFR (MDRD) 97 Glucose 94 Calcium 9.5 Total Bilirubin 0.4 AST 20 ALT 20 Alkaline Phosphatase 71 Troponin I High Sens < 2.3 L Total Protein 7.1 Albumin 4.3 Globulin 2.8 Albumin/Globulin Ratio 1.5 Lipase < 10 L Urine Color Urine Clarity Urine pH Ur Specific [place] Urine Protein Urine Glucose (UA) Urine Ketones Urine Occult Blood Urine Nitrite Urine Bilirubin Urine Urobilinogen Ur Leukocyte Esterase Urine RBC Urine WBC Ur Squamous Epith Cells Urine Bacteria Ur Microscopic Review Urine Culture Comments Urine HCG, Qual PD Medical Decision Making - ED course Complexity details: reviewed results, re-evaluated patient, d/w patient ED course: Pt is a 33 yo F with prior cholecystectomy and partial hysterectomy with R lower back and abdominal pain. No UTI symptoms. Last BM yesterday. No N/V/D. VSS. CBC, chemistries reviewed without significant findings. UA with no blood or clears signs of infection. Pt noted to be bradycardic while on monitor. EKG with bigeminy. troponin negative and symptoms not suggestive of ACS. Ct Abd/Pelvis obtained. Normal appendix. No signs of large cyst. History does not suggest SBO. Pain improved with morphine and toradol. Discussed that etiology of symptoms unclear and recommend continued supportive care. Pt advised on need for PCP follow up and strict return precautions. Departure - Departure Disposition: 01 Home, Self Care Clinical Impression: Right sided abdominal pain, Ventricular bigeminy Condition: Stable Instructions: Premature Ventricular Contract About, ED Abdominal Pain Female Non-Specific Abdominal Pain Comments: Your labs are reassuring with no significant abnormalities. Your CT scan of the abdomen and pelvis does not show signs of appendicitis or any other surgical process. Your urine does not demonstrate clear signs of infection at this time but we sent for culture. I would recommend continue with anti-inflammatories and a bland diet. Your EKG here today shows bigeminy which is PVCs which are extra beats. Please have close follow-up with your primary care provider. Return to the ER with any worsening symptoms. Forms: PCP List, Activity restrictions Discharge Date/Time: 01/08/24 14:10
[2024-01-08] MEDS: SODIUM CHLORIDE 0.9% 1,000 ML IV STA (12:20)
[2024-01-08] MEDS: ONDANSETRON 4 MG/2 ML VIAL IVP STA (12:22)
--- NOTE | 2024-01-08 12:23 | Labor Flowsheet ---
Labor Flowsheet Datetime Report Generated by CPN: 01/08/2024 12:22 Datetime: 01/08/2024 12:18 Pulse: 70 SpO2 (%): 97 Datetime: 01/08/2024 12:06 VITAL SIGNS NBP Sys/Hodan/Mean (mmHg): 102 : 68 : 76
[2024-01-08] MEDS: MORPHINE 2 MG/ML CARPUJECT IVP STA (12:24)
[2024-01-08] MEDS: iohexoL-300 100 ML VIAL IVP ONE (12:45)
[2024-01-08 12:53] LABS: HCG UR QUAL NEGATIVE
--- NOTE | 2024-01-08 13:12 | CT Report ---
PROCEDURE: Abdomen/Pelvis W INDICATIONS: R SIDED PAIN CONTRAST: Omni 300 100ml TECHNIQUE: After the administration of intravenous contrast, a CT scan of the abdomen and pelvis was performed. Images were recorded and evaluated at appropriate window settings. Reformats: coronal and sagittal. F or radiation dose reduction, the following was used: automated exposure control, adjustment of mA and /or kV according to patient size. COMPARISON: 12/30/2016 FINDINGS: Image quality: Diagnostic. Lower chest: Unremarkable. Liver: No solid mass. Gallbladder and biliary tree: Gallbladder is absent. Spleen: No splenomegaly. Pancreas: No pancreatic ductal dilation. Adrenals: No adrenal nodule. Kidneys and ureters: No hydronephrosis. No renal cystic lesion which requires follow up. No solid mas s. Stomach, bowel and peritoneum: Stomach is nondistended. Multiple mildly distended fluid-filled loops of small bowel within the left hemiabdomen are present. Distal small bowel is decompressed. Appendix is normal. Small amount of free fluid within the pelvis. Lymph nodes: No central or retroperitoneal adenopathy. Vessels: No infrarenal aortic aneurysm. PELVIS Reproductive organs: Unremarkable. Bladder: No abnormal wall thickening, accounting for underdistention. Pelvic lymph nodes: No pelvic adenopathy by size criteria. Bones: No aggressive osseous abnormality. Other: No significant ventral or inguinal hernia. IMPRESSION: 1. Small amount of free fluid in the pelvis, within physiological limits in a menstruating female. 2. Normal appendix. 3. Fluid-filled distended small bowel loops, suggestive of gastroenteritis in the appropriate clinica l setting. Continued clinical follow-up is recommended to exclude developing obstruction. Reviewed by: Edilson Vergara MD on 01/08/2024 1:11 PM PST Approved by: Edilson Vergara MD on 01/08/2024 1:11 PM PST Station ID: [id number]
[2024-01-08] MEDS: KETOROLAC 30 MG/ML VIAL IVP STA (13:58)
[2024-01-08 14:08] VITALS: BP 104/65; O2SAT 97
--- NOTE | 2024-01-08 14:59 | XRAY Report ---
PROCEDURE: Chest 1V INDICATIONS: CP TECHNIQUE: One view of the chest was acquired. COMPARISON: 08/03/2023. FINDINGS: Surgical changes and devices: None. Lungs and pleura: No pleural effusions or pneumothorax. Lungs are clear. Mediastinum: Mediastinal contours appear normal. Heart size is normal. Bones and chest wall: No suspicious bony lesions. Overlying soft tissues appear unremarkable. IMPRESSION: No acute cardiopulmonary process. Reviewed by: Tano Christine MD on 01/08/2024 2:57 PM PST Approved by: Tano Christine MD on 01/08/2024 2:57 PM PST Station ID: [id number]
== END 2024-01-08 14:10 | disposition home or self-care (01) ==
LOC: ED 10:52 → FBP 11:51 → ED 11:51
DX: R10.31 Right lower quadrant pain (principal); R00.8 Other abnormalities of heart beat; J45.909 Unspecified asthma, uncomplicated; Z90.49 Acquired absence of other specified parts of digestive tract; Z90.710 Acquired absence of both cervix and uterus; F17.200 Nicotine dependence, unspecified, uncomplicated
CPT/HCPCS: 36415; 71045; 74177; 80053; 81001; 81025; 83690; 84484; 85025; 87086; 93005; 96374; 96375; 99283; 99284; Q9967; 81003

== ENCOUNTER 2024-03-12 00:46 | Emergency (ER) | payer MEDICAID ==
[2024-03-12 01:04] VITALS: BP 133/82
--- NOTE | 2024-03-12 01:39 | ED Physician Documentation ---
History of Present Illness - Stated complaint Stated Complaint: MIGRAINE - Chief complaint Chief Complaint: Neuro - History obtained from History obtained from: Patient - Additonal information Additional information: 33yF with pmh migraines p/w BL occipital CM since 9am (>16 hours), refractory to OTC meds including tylenol and NSAIDs. patient also with associated nausea but no vomiting, fever, fnd, confusion, vision changes. 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: No - Immunizations Immunizations are current?: Yes - POLST Patient has POLST: No PD ED PE NORMAL - Vitals Vital signs reviewed: Yes - General General: Alert and oriented X 3, No acute distress, Well developed/nourished - HEENT HEENT: Atraumatic, PERRL, EOMI, Moist mucous membranes, Pharynx benign - Neck Neck: Supple, no meningeal sign - Cardiac Cardiac: RRR - Respiratory Respiratory: No respiratory distress, Clear bilaterally - Abdomen Abdomen: Non tender, Non distended - Derm Derm: Normal color, Warm and dry - Neuro Neuro: Alert and oriented X 3, 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, No motor deficit, No sensory deficit, Normal speech Eye Opening: Spontaneous Motor: Obeys Commands Verbal: Oriented GCS Score: 15 - Psych Psych: Normal mood, Normal affect Results - Vitals Vitals: Vital Signs - 24 hr 03/12/24 00:51 Heart Rate 74 Respiratory 16 Rate Blood Pressure 133/82 H O2 Saturation 99 Oxygen O2 Source Room air - Labs Labs: Laboratory Tests 03/12/24 03/12/24 02:00 02:00 WBC 8.9 RBC 4.30 Hgb 13.1 Hct 37.9 MCV 88.1 MCH 30.5 MCHC 34.6 RDW 12.2 Plt Count 308 MPV 9.5 Neut # (Auto) 5.9 Lymph # (Auto) 2.0 [place] # (Auto) 0.6 Eos # (Auto) 0.4 Baso # (Auto) 0.0 Absolute Nucleated RBC 0.00 Nucleated RBC % 0.0 Sodium 141 Potassium 3.7 Chloride 108 Carbon Dioxide 24 Anion Gap 9.0 BUN 10 Creatinine 0.6 Estimated GFR (MDRD) 116 Glucose 117 H Calcium 9.7 Total Bilirubin 0.2 AST 17 ALT 15 Alkaline Phosphatase 80 Total Protein 6.5 Albumin 4.1 Globulin 2.4 Albumin/Globulin Ratio 1.7 Lipase 17 PD Medical Decision Making - ED course ED course: 33yF p/w BL occipital headache c/w prior migraines X 1 day, resolving s/p migraine cocktail in the ED. CBC, abdominal panel unremarkable. return precautions given. plan to f/u with pcp. Departure - Departure Disposition: 01 Home, Self Care Clinical Impression: Migraine Condition: Stable Instructions: ED Headache Migraine Comments: You were seen in the emergency department for migraine headache. A migraine cocktail was administered in the ED containing reglan, benadryl, toradol and IV fluids. Your labwork including cbc and abdominal panel was all normal. You can view the results on your patient health portal. Please follow-up with your primary care provider and return to the emergency department if you have any new or worsening symptoms or other concerns. Forms: PCP List
[2024-03-12] MEDS: SODIUM CHLORIDE 0.9% 1,000 ML IV STA (02:02)
[2024-03-12] MEDS: KETOROLAC 15 MG/ML VIAL IVP STA (02:04)
[2024-03-12 02:06] LABS: BASOPHILS % (AUTO) 0.3 %; EOSINOPHILS # (AUTO) 0.4 10^3/uL (0.0-0.7); HCT - HEMATOCRIT 37.9 % (37.0-47.0); HGB - HEMOGLOBIN 13.1 g/dL (12.0-16.0); LYMPHOCYTES % (AUTO) 22.9 %; MEAN CORPUSCULAR HEMOGLOBIN 30.5 pg (27.0-31.0); MEAN CORPUSCULAR HGB CONC 34.6 g/dL (32.0-36.0); MEAN CORPUSCULAR VOLUME 88.1 fL (81.0-99.0); MEAN PLATELET VOLUME 9.5 fL (7.9-10.8); MONOCYTES # (AUTO) 0.6 10^3/uL (0.0-1.0); MONOCYTES % (AUTO) 6.7 %; NEUTROPHILS # (AUTO) 5.9 10^3/uL (1.5-6.6); NEUTROPHILS % (AUTO) 65.9 %; PLT - PLATELET COUNT 308 10^3/uL (130-450); RED CELL DISTRIBUTION WIDTH 12.2 % (12.0-15.0); WHITE BLOOD COUNT 8.9 x10^3/uL (4.8-10.8)
[2024-03-12] MEDS: diphenhydrAMINE INJ 50 MG/ML VIAL IVP STA (02:08)
[2024-03-12] MEDS: METOCLOPRAMIDE 10 MG/2 ML VIAL IVP STA (02:09)
[2024-03-12] MEDS: ACETAMINOPHEN 325 MG TABLET PO STA (02:15)
[2024-03-12 02:27] LABS: ALBUMIN 4.1 g/dL (3.2-5.5); ALBUMIN/GLOBULIN RATIO 1.7 (1.0-2.2); BILIRUBIN,TOTAL 0.2 mg/dL (0.2-1.0); CALCIUM 9.7 mg/dL (8.5-10.3); CREATININE 0.6 mg/dL (0.6-1.3); POTASSIUM 3.7 mmol/L (3.5-4.5); TOTAL PROTEIN 6.5 g/dL (6.4-8.9)
[2024-03-12 03:18] VITALS: O2SAT 98
== END 2024-03-12 03:08 | disposition home or self-care (01) ==
LOC: ED 00:46
DX: G43.009 Migraine without aura, not intractable, without status migrainosus (principal); J45.909 Unspecified asthma, uncomplicated; F17.200 Nicotine dependence, unspecified, uncomplicated
CPT/HCPCS: 36415; 80053; 83690; 85025; 96374; 96375; 99283; J1200; J2765

== ENCOUNTER 2024-04-28 16:17 | Emergency (ER) | payer MEDICAID ==
--- NOTE | 2024-04-28 16:35 | ED Physician Documentation ---
PD HPI ABD PAIN - Stated complaint Stated Complaint: CM/R SIDE PX - Chief complaint Chief Complaint: Abd Pain - History obtained from History obtained from: Patient - Additional information Additional information: 33-year-old woman with history of hysterectomy without oophorectomy, cholecystectomy presents with 2 days of watery diarrhea. She has been exposed to C. 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 No recent antibiotics or travel. No sick contacts other than at work. More recently today she has developed some severe right-sided mid abdominal pain radiating to the back without urinary symptoms or hematuria. No history of renal colic. No fevers but has had chills. She also has a migraine but states the abdominal pain is much more significant than her migraine. Migraines are frequent for her. 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: Tubal ligation, Hysterectomy, Other - Present Medications Home Medications: Ambulatory Orders Medication Instructions Recorded Confirmed HYDROcod/ACETAM 5/325 [[place] 5/325] 1 - 2 tab PO Q6H PRN #15 tablet 04/28/24 Loperamide [Imodium] 2 mg PO QID PRN #10 cap 04/28/24 Ondansetron Odt [Zofran] 4 mg TL Q6H PRN #10 tablet 04/28/24 dilTIAZem HCL [Diltiazem 24Hr ER] 120 mg PO DAILY 04/28/24 04/28/24 - Allergies Allergies/Adverse Reactions: Allergies Allergy/AdvReac Type Severity Reaction Status Date / Time venom-honey bee AdvReac Unknown Respiratory Verified 04/28/24 16:26 - Social History Does the pt smoke?: Yes Smoking Status: Current every day smoker Does the pt drink ETOH?: No Does the pt have substance abuse?: No - Immunizations Immunizations are current?: Yes - POLST Patient has POLST: No PD ED PE NORMAL - Vitals Vital signs reviewed: Yes - General General: Alert and oriented X 3, Other (Appears mildly uncomfortable) - Cardiac Cardiac: Other (Mild resting tachycardia, regular without murmur) - Respiratory Respiratory: No respiratory distress, Clear bilaterally - Abdomen Abdomen: Other (Moderate diffuse right abdominal tenderness without surgical signs. It relatively spares the right lower quadrant.) - Derm Derm: No rash - Neuro Neuro: Alert and oriented X 3 Results - Vitals Vitals: Vital Signs - 24 hr 04/28/24 04/28/24 16:23 18:26 Temperature 37.0 C Heart Rate 114 H 89 Respiratory 20 16 Rate Blood Pressure 129/86 H 93/56 L O2 Saturation 98 98 Oxygen O2 Source Room air - Labs Labs: Laboratory Tests 04/28/24 04/28/24 04/28/24 16:40 16:45 16:45 WBC 11.8 H RBC 4.82 Hgb 14.4 Hct 42.7 MCV 88.6 MCH 29.9 MCHC 33.7 RDW 12.4 Plt Count 285 MPV 9.8 Neut # (Auto) 10.3 H Lymph # (Auto) 0.8 L [place] # (Auto) 0.5 Eos # (Auto) 0.1 Baso # (Auto) 0.0 Absolute Nucleated RBC 0.00 Nucleated RBC % 0.0 Sodium 135 Potassium 3.9 Chloride 105 Carbon Dioxide 22 Anion Gap 8.0 BUN 13 Creatinine 0.7 Estimated GFR (MDRD) 97 Glucose 101 Calcium 9.4 Total Bilirubin 0.7 AST 16 ALT 15 Alkaline Phosphatase 67 Total Protein 7.3 Albumin 4.4 Globulin 2.9 Albumin/Globulin Ratio 1.5 Lipase 13 Urine Color Urine Clarity Urine pH Ur Specific [place] Urine Protein Urine Glucose (UA) Urine Ketones Urine Occult Blood Urine Nitrite Urine Bilirubin Urine Urobilinogen Ur Leukocyte Esterase Ur Microscopic Review Urine Culture Comments Stl C. diff Tox B Gene NEGATIVE 04/28/24 18:15 WBC RBC Hgb Hct MCV MCH MCHC RDW Plt Count MPV Neut # (Auto) Lymph # (Auto) [place] # (Auto) Eos # (Auto) Baso # (Auto) Absolute Nucleated RBC Nucleated RBC % Sodium Potassium Chloride Carbon Dioxide Anion Gap BUN Creatinine Estimated GFR (MDRD) Glucose Calcium Total Bilirubin AST ALT Alkaline Phosphatase Total Protein Albumin Globulin Albumin/Globulin Ratio Lipase Urine Color YELLOW Urine Clarity CLEAR Urine pH 5.5 Ur Specific [place] 1.015 Urine Protein NEGATIVE Urine Glucose (UA) NEGATIVE Urine Ketones NEGATIVE Urine Occult Blood NEGATIVE Urine Nitrite NEGATIVE Urine Bilirubin NEGATIVE Urine Urobilinogen 0.2 (NORMAL) Ur Leukocyte Esterase NEGATIVE Ur Microscopic Review NOT INDICATED Urine Culture Comments NOT INDICATED Stl C. diff Tox B Gene - Rads (name of study) CT of the abdomen pelvis without acute disease. Prominence of left ovary compared to right Relevant Findings:: Final report received, EMP independent interpretation of test PD Medical Decision Making - ED course ED course: She presents with 2 days of diarrhea and right-sided abdominal pain radiating to the back. Did not seem like appendicitis but that was on the differential as was pyelonephritis. That said her urine was normal and the CT showed some prominence of the left ovary compared to the right. I suspect this is in consequential but was mentioned to the patient with follow-up advised. Otherwise her workup demonstrates a mild elevation in her white count with otherwise normal CBC, CMP, urine, and C. difficile testing. She was feeling better after 2 doses of IV Dilaudid and 1 dose of Toradol as well as some IV fluids here. Departure - Departure Disposition: 01 Home, Self Care Clinical Impression: Diarrhea, Abdominal pain Condition: Good Record reviewed to determine appropriate education?: Yes Instructions: ED Abdominal Pain Female Non-Specific Abdominal Pain, ED Diarrhea Viral Prescriptions: Loperamide [Imodium] 2 mg PO QID PRN #10 cap PRN Reason: Diarrhea HYDROcod/ACETAM 5/325 [[place] 5/325] 1 - 2 tab PO Q6H PRN #15 tablet PRN Reason: Pain Ondansetron Odt [Zofran] 4 mg TL Q6H PRN #10 tablet PRN Reason: Nausea / Vomiting Comments: I sent your prescriptions electronically to the [facility] in [place]. You are seen today for diarrhea and right-sided abdominal pain. Workup was notable for a negative C. difficile test. Mild elevation in your white count, otherwise negative labs. On your CAT scan the radiologist felt it was relatively normal but with maybe mild prominence of the left ovary compared to the right. I suspect this is inconsequential but please mention this to your primary care physician. There is a stool culture pending and if a specific etiology of your diarrhea that needs treatment is isolated we will call you in the next couple of days. Call your doctor to arrange a follow-up appointment, make the next available appointment. In the interim, return anytime if worse or if new symptoms develop. I am prescribing a short course of narcotic pain medication for you. These are potentially dangerous and addictive medications that should be used carefully. These medications may constipate you. Take an [id number] stool softener (docusate) twice daily with plenty of water while taking these medications. If you go 24 hours without a bowel movement, take [id number] miralax, per package instructions. Do not drink or drive while taking these medications. If you received narcotic or sedating medications [facility], do not drive for 24 hours. Store this medication in a safe, secure place and out of reach of children. It is a violation of federal law to give or sell this medication to another person or to use in a manner other than prescribed. The ED will not refill narcotic prescriptions, including prescriptions lost or stolen. To dispose of unwanted medications: 1. [facility] provides a drop box for medication in pill form only (no liquids) 8:00 am to 4:30 p.m. Friday-Friday in the lobby of the [facility], [address] [place] [address]. Empty pills into ziplock bag before disposal. Call [phone] for information. 2.[employer] is a free service available to all [facility] residents. Go to [email or web address] Note that many narcotic pain relievers also contain Tylenol/acetaminophen. Please ensure that your total dose of acetaminophen from all sources does not exceed 3 g (3000 mg) per day. Forms: PCP List, Activity restrictions
[2024-04-28 16:57] LABS: BASOPHILS % (AUTO) 0.3 %; EOSINOPHILS # (AUTO) 0.1 10^3/uL (0.0-0.7); EOSINOPHILS % (AUTO) 0.9 %; HCT - HEMATOCRIT 42.7 % (37.0-47.0); HGB - HEMOGLOBIN 14.4 g/dL (12.0-16.0); LYMPHOCYTES # (AUTO) 0.8 10^3/uL (1.5-3.5); LYMPHOCYTES % (AUTO) 6.5 %; MEAN CORPUSCULAR HEMOGLOBIN 29.9 pg (27.0-31.0); MEAN CORPUSCULAR HGB CONC 33.7 g/dL (32.0-36.0); MEAN CORPUSCULAR VOLUME 88.6 fL (81.0-99.0); MEAN PLATELET VOLUME 9.8 fL (7.9-10.8); MONOCYTES # (AUTO) 0.5 10^3/uL (0.0-1.0); MONOCYTES % (AUTO) 4.3 %; NEUTROPHILS # (AUTO) 10.3 10^3/uL (1.5-6.6); NEUTROPHILS % (AUTO) 87.7 %; PLT - PLATELET COUNT 285 10^3/uL (130-450); RED BLOOD COUNT 4.82 10^6/uL (4.20-5.40); RED CELL DISTRIBUTION WIDTH 12.4 % (12.0-15.0); WHITE BLOOD COUNT 11.8 x10^3/uL (4.8-10.8)
[2024-04-28] MEDS: HYDROmorphone 1 MG/ML CARPUJECT IVP STA ×2 (16:57→17:46)
[2024-04-28] MEDS: ONDANSETRON 4 MG/2 ML VIAL IVP STA (16:57)
[2024-04-28] MEDS: KETOROLAC 15 MG/ML VIAL IVP STA (16:57)
[2024-04-28] MEDS: SODIUM CHLORIDE 0.9% 1,000 ML IV STA (16:58)
[2024-04-28 17:14] LABS: ALBUMIN 4.4 g/dL (3.2-5.5); ALBUMIN/GLOBULIN RATIO 1.5 (1.0-2.2); BILIRUBIN,TOTAL 0.7 mg/dL (0.2-1.0); CALCIUM 9.4 mg/dL (8.5-10.3); CREATININE 0.7 mg/dL (0.6-1.3); POTASSIUM 3.9 mmol/L (3.5-4.5); TOTAL PROTEIN 7.3 g/dL (6.4-8.9)
[2024-04-28] MEDS ORDERED: iohexoL-300 100 ML VIAL ONE (17:32)
[2024-04-28] MEDS: iohexoL-300 100 ML VIAL IVP ONE (17:52)
[2024-04-28 18:30] LABS: BILIRUBIN,URINE NEGATIVE (NEGATIVE); GLUCOSE, URINE (UA) NEGATIVE (NEGATIVE); KETONES,URINE (UA) NEGATIVE (NEGATIVE); LEUKOCYTE ESTERASE, URINE NEGATIVE (NEGATIVE); NITRITE,URINE NEGATIVE (NEGATIVE); OCCULT BLOOD,URINE NEGATIVE (NEGATIVE); PH,URINE 5.5 PH (5.0-7.5); PROTEIN,URINE NEGATIVE (NEGATIVE); UROBILINOGEN,URINE 0.2 (NORMAL) E.U./dL (NORMAL)
[2024-04-28 18:33] LABS: CLARITY,URINE CLEAR (CLEAR)
--- NOTE | 2024-04-28 18:57 | CT Report ---
PROCEDURE: Abdomen/Pelvis W INDICATIONS: iv only r side abd pain CONTRAST: [id number] TECHNIQUE: After the administration of intravenous contrast, a CT scan of the abdomen and pelvis was performed. Images were recorded and evaluated at appropriate window settings. Reformats: coronal and sagittal. F or radiation dose reduction, the following was used: automated exposure control, adjustment of mA and /or kV according to patient size. COMPARISON: 01/08/2024 FINDINGS: Image quality: Diagnostic. Lower chest: Unremarkable. Liver: No solid mass. Gallbladder: Absent Biliary tree: No intrahepatic or extrahepatic dilation, accounting for age. Spleen: No splenomegaly. Pancreas: No pancreatic ductal dilation. Adrenals: No adrenal nodule. Kidneys and ureters: No hydronephrosis. No renal cystic lesion which requires follow up. No solid mas s. Stomach, bowel and peritoneum: No gastric or small bowel dilation. No abnormal wall thickening. No pa thologic free fluid. Normal appendix. Lymph nodes: No central or retroperitoneal adenopathy. Vessels: No infrarenal aortic aneurysm. Patent portal vein. PELVIS Reproductive organs: Left ovary is mildly prominent compared to the right measuring 3.2 x 2.4 cm, lik debra within normal limits for age. Bilateral corpus luteal cyst are noted.. Bladder: No abnormal wall thickening, accounting for underdistention. Pelvic lymph nodes: No pelvic adenopathy by size criteria. Bones: No aggressive osseous abnormality. Other: No significant ventral or inguinal hernia. IMPRESSION: 1.No acute findings within the abdomen or pelvis to explain patient's symptoms. Normal appendix. 2.Mild prominence of the left ovary compared to the right. Likely still within normal limits of size for patient's age. Bilateral corpus luteal cysts are noted. Nonurgent pelvic ultrasound can be obtain ed for further evaluation as clinically indicated. Reviewed by: Tano Christine MD on 04/28/2024 6:56 PM PDT Approved by: Tano Christine MD on 04/28/2024 6:56 PM PDT Station ID: [id number]
[2024-04-28 19:30] VITALS: BP 91/61; O2SAT 95
== END 2024-04-28 19:23 | disposition home or self-care (01) ==
LOC: ED 16:17
DX: R19.7 Diarrhea, unspecified (principal); R10.31 Right lower quadrant pain; J45.909 Unspecified asthma, uncomplicated; F17.200 Nicotine dependence, unspecified, uncomplicated
CPT/HCPCS: 36415; 74177; 80053; 81003; 83690; 85025; 87045; 87046; 87427; 87493; 96374; 96376; 99284; J1170; Q9967; 81001; 87086

== ENCOUNTER 2024-05-28 20:39 | Emergency (ER) | payer OTHER, MEDICAID ==
--- NOTE | 2024-05-28 21:16 | ED Physician Documentation ---
History of Present Illness - Stated complaint Stated Complaint: BACK PX - Chief complaint Chief Complaint: Trauma Ch/Bk - History obtained from History obtained from: Patient - Additonal information Additional information: Patient is a 33-year-old female presenting to the emergency department with lower back pain. 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 She is unsure if she got hit or if she turned too quickly but she went home and used ice heat ibuprofen and had persistent lower back pain. She notes she has received injections in her back but this was multiple years ago and has not had problems since then. She denies any saddle anesthesia no fevers she denies any numbness or tingling in her lower extremities. She has no difficulty with walking no incontinence issues. She notes pain is mainly on the left side but radiates to her lower mid back as well. 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: Tubal ligation, Hysterectomy, Other - Present Medications Home Medications: Ambulatory Orders Medication Instructions Recorded Confirmed Cyclobenzaprine [Flexeril] 10 mg PO TID PRN #20 tablet 05/28/24 - Allergies Allergies/Adverse Reactions: Allergies Allergy/AdvReac Type Severity Reaction Status Date / Time venom-honey bee AdvReac Unknown Respiratory Verified 05/28/24 20:58 - Social History Does the pt smoke?: Yes Smoking Status: Current every day smoker Does the pt drink ETOH?: No Does the pt have substance abuse?: No - Immunizations Immunizations are current?: Yes - POLST Patient has POLST: No PD ED PE NORMAL - Vitals Vital signs reviewed: Yes - General General: Alert and oriented X 3 - HEENT HEENT: Atraumatic - Neck Neck: Supple, no meningeal sign - Cardiac Cardiac: RRR, No gallop, No rub - Respiratory Respiratory: No respiratory distress, Clear bilaterally - Abdomen Abdomen: Normal bowel sounds, Non tender - Back Back: Other (. Reproducible lumbar spinous process tenderness on examination as well as left-sided paraspinal muscle tenderness on palpation no signs of obvious deformity bruising or swelling. Sensation intact distally bilaterally pulses intact distally full range of motion of left and right leg with strength 5) Results - Vitals Vitals: Vital Signs - 24 hr 05/28/24 05/28/24 20:53 22:05 Temperature 36.5 C 36.5 C Heart Rate 82 80 Respiratory 16 16 Rate Blood Pressure 122/71 112/63 O2 Saturation 100 100 Oxygen O2 Source Room air PD Medical Decision Making - ED course Complexity details: reviewed old records, reviewed results, d/w patient Departure - Departure Disposition: 01 Home, Self Care Clinical Impression: Acute myofascial strain of lumbar region, Lumbar paraspinal muscle spasm Condition: Good Instructions: ED Sprain Strain Lumbar Comments: Your workup here in the emergency department was reassuring your pain improved with the muscle relaxer we did not have official read of your x-ray of your lumbar spine back however it looks reassuring you need to follow-up with your PCP in outpatient setting of giving you a work note for work tomorrow and to take it easy until cleared by your PCP return with any numbness tingling incontinence fevers worsening pain or any other new or worsening symptoms. Forms: PCP List
[2024-05-28 21:18] VITALS: O2SAT 100
[2024-05-28] MEDS: CYCLOBENZAPRINE 10 MG TABLET PO STA (21:35)
[2024-05-28] MEDS: KETOROLAC 15 MG/ML VIAL IM STA (21:35)
[2024-05-28] MEDS: LIDOCAINE PATCH 5% TOP STA (21:40)
[2024-05-28 22:34] VITALS: BP 112/63
--- NOTE | 2024-05-28 23:23 | XRAY Report ---
PROCEDURE: Lumbar Spine 2-3V INDICATIONS: lower back pain TECHNIQUE: 3 views of the lumbar spine were acquired. COMPARISON: None. FINDINGS: Surgical change: None. Bones: 5 [id number] vertebrae are present. There is normal bony alignment. No vertebral body co mpression fractures. No suspicious bony lesions. Soft tissues: Overlying bowel gas pattern is normal. No suspicious soft tissue calcifications. IMPRESSION: Lumbar spine without acute fracture or traumatic malalignment. Reviewed by: Scott Barger MD on 05/28/2024 11:22 PM PDT Approved by: Scott Barger MD on 05/28/2024 11:22 PM PDT Station ID: [id number]
== END 2024-05-28 22:35 | disposition home or self-care (01) ==
LOC: ED 20:39
DX: S39.012A Strain of muscle, fascia and tendon of lower back, initial encounter (principal); X50.0XXA Overexertion from strenuous movement or load, initial encounter; Y93.F9 Activity, other caregiving; Y92.239 Unspecified place in hospital as the place of occurrence of the external cause; Y99.0 Civilian activity done for income or pay; F17.200 Nicotine dependence, unspecified, uncomplicated
CPT/HCPCS: 72100; 96372; 99283; 99284; A9270